=== PATIENT | female | born 1945 | race Caucasian/White ===

== ENCOUNTER 2016-11-19 19:31 | Inpatient (IN) | payer MEDICAID ==
[~2016-11-19] VITALS: Ht 160 cm; Wt 57.2 kg
[2016-11-19] MEDS ORDERED: morphine 2 MG INJ IV STA (20:51)
[2016-11-19] MEDS ORDERED: SOD CHLORIDE 0.9% 1,000 ML IV STA (20:51)
[2016-11-19] MEDS ORDERED: ONDANSETRON 4 MG INJ IV STA (20:51)
[2016-11-19] MEDS ORDERED: METO25TA7 PO (21:26)
--- NOTE | 2016-11-19 21:26 | ERA ---
ER Documentation Chief Complaint Date/Time DATE: 11/19/16 TIME: 21:24 Chief Complaint abd pain x 1 week, black/watery stool HPI Patient is a 71-year-old female who reports abdominal pain with diarrhea. Abdominal pain started a week ago. The diarrhea has been only 4 episodes. Abdominal pain is predominantly in the epigastric and left upper quadrant region and radiates to the left lower back region. She denies any fever, nausea , or vomiting. She has had a loss of appetite. She has recently traveled to the [facility]. She has not been on any antibiotics. One stool was bloody however the rest of them have not been bloody. She has not experienced the symptoms before. Nothing seems to make this better or worse. She denies any dysuria or hematuria. The remainder review systems are negative. ROS All systems reviewed and are negative except as per history of present illness. Medications Home Meds Reported Medications [Nephro-Vaibhav] No Conflict Check, 1 TAB PO DAILY 11/19/16 Furosemide* (Furosemide*) 20 Mg Tablet, 20 MG PO Q48H, #30 TAB 11/19/16 [place]-3/Dha/Epa/Fish Oil (Fish Oil 500 mg Softgel) 1 Each Capsule, 1 EACH PO DAILY, CAP 11/19/16 Aspirin* (Aspirin* EC) 81 Mg Tablet.dr, 81 MG PO DAILY, TAB 11/19/16 Metoprolol Succinate* (Toprol XL*) 25 Mg Tab.sr.24h, 25 MG PO DAILY, #30 TAB 11/19/16 Discontinued Reported Medications Vitamin B Complex/Vit C (Total B with C) 1 Each Tablet, 1 EACH PO DAILY, TAB 11/19/16 Allergies Allergies: Coded Allergies: No Known Drug Allergies (Verified Allergy, Unknown, 11/19/16) PMhx/Soc History of Surgery: Yes (partial bowel obstruction sx 1993,heart cath) Anesthesia Reaction: No Hx Neurological Disorder: No Hx Respiratory Disorders: No Hx Cardiac Disorders: Yes (HTN,mitral regurg,high cholesterol) Hx Psychiatric Problems: No Hx Miscellaneous Medical Probl: Yes (gout,kidney dz stage 4 no dialysis) Hx Alcohol Use: No Hx Substance Use: No Hx Tobacco Use: No Smoking Status: Never smoker Physical Exam Vitals Vital Signs Date Time Temp Pulse Resp B/P Pulse Ox O2 Delivery O2 Flow Rate FiO2 11/19/16 19:41 98.1 84 20 158/67 100 Physical Exam Const: [] Well-developed thin female lying on the bed in no acute distress Head: Atraumatic normocephalic Eyes: Normal Conjunctiva ENT: Normal External Ears, Nose and Mouth. Neck: Full range of motion..~ No meningismus. Resp: Clear to auscultation bilaterally Cardio: Regular rate and rhythm, no murmurs Abd: Soft, mild tenderness to palpation in epigastric and left upper quadrant region with no masses, rebound, or guarding, non distended. Diminished bowel sounds Skin: No petechiae or rashes Back: No midline or flank tenderness Ext: No cyanosis, or edema Neur: Awake and alert oriented 3 with a GCS of 15 Psych: Normal Mood and Affect Result Diagram: 11/19/16205611/19/162056 Results 24 hrs Laboratory Tests Test 11/19/16 20:57 Alanine Aminotransferase (ALT/SGPT) 24IU/L Albumin 4.1g/dl Albumin/Globulin Ratio 1.10 Alkaline Phosphatase 102IU/L Anion Gap 20 Aspartate Amino Transf (AST/SGOT) 31IU/L Basophils # 0.110^3/ul Basophils % 0.6% Blood Urea Nitrogen 28mg/dl Calcium Level 9.3mg/dl Carbon Dioxide Level 23mmol/L Chloride Level 108mmol/L Creatinine 1.91mg/dl Direct Bilirubin 0.00mg/dl Eosinophils # 0.410^3/ul Eosinophils % 4.5% Globulin 3.70g/dl Glucose Level 132mg/dl Hematocrit 23.4% Hemoglobin 7.3g/dl Indirect Bilirubin 0.0mg/dl Lipase 301U/L Lymphocytes # 1.810^3/ul Lymphocytes % 21.0% Mean Corpuscular Hemoglobin 30.0pg Mean Corpuscular Hemoglobin Concent 31.2g/dl Mean Corpuscular Volume 96.3fl Mean Platelet Volume 10.9fl Monocytes # 0.610^3/ul Monocytes % 7.6% Neutrophils # 5.510^3/ul Neutrophils % 66.1% Nucleated Red Blood Cells # 0.010^3/ul Nucleated Red Blood Cells % 0.0/100WBC Platelet Count 36528^3/UL Potassium Level 5.1mmol/L Red Blood Count 2.4310^6/ul Red Cell Distribution Width 13.1% Sodium Level 146mmol/L Total Bilirubin 0.0mg/dl Total Protein 7.8g/dl White Blood Count 8.410^3/ul Current Medications Medications (Trade) Dose Ordered Sig/Allyson Route PRN Reason Start Time Stop Time Status Last Admin Dose Admin Sodium Chloride (NS) 1,000 ml @ 1,000 mls/hr Q1H STAT IV 11/19/16 20:51 11/19/16 21:50 DC 11/19/16 21:10 Morphine Sulfate (morphine) 2 mg ONCE STAT IV 11/19/16 20:51 11/19/16 20:53 DC 11/19/16 21:10 Ondansetron HCl (Zofran Inj) 4 mg ONCE STAT IV 11/19/16 20:51 11/19/16 20:53 DC 11/19/16 21:10 Procedures/MDM Differential includes but is not limited to nonspecific abdominal pain, gastroenteritis, colitis, bacterial enteritis, dehydration, electrolyte disturbance, pyelonephritis, UTI CT of the abdomen and pelvis does not reveal any acute intra-abdominal process. Patient is hemodynamically stable however she is anemic. She is in the hallway and I have been unable to perform a rectal exam to determine if she is heme positive. I suspect she may be. Regardless she needs to be transfused 2 units of blood. I have consulted the hospitalist to admit her to the hospital. Hopefully at some point she will be placed in a room where I can complete her examination. Departure Diagnosis: Primary Impression: Abdominal pain Qualified Code: R10.12 - Left upper quadrant pain Additional Impressions: Diarrhea Qualified Code: A09 - Diarrhea of presumed infectious origin Anemia Qualified Code: D64.9 - Anemia, unspecified type Renal insufficiency Condition: ANAYELI Sinha Nov 19, 2016 21:26
[2016-11-19] MEDS ORDERED: ASPI-664 PO (21:27)
[2016-11-19] MEDS ORDERED: OMEG-144 PO (21:28)
[2016-11-19 21:29] LABS: ADD SCAN DIFF NO
[2016-11-19] MEDS ORDERED: FURO20TA3 PO (21:30)
[2016-11-19 21:31] LABS: BASOPHIL # 0.1 10^3/ul (0.0-0.1); BASOPHILS % 0.6 % (0.0-2.0); EOSINOPHILS # 0.4 10^3/ul (0.0-0.5); EOSINOPHILS % 4.5 % (0.0-7.0); HEMATOCRIT 23.4 % (37.0-47.0); HEMOGLOBIN 7.3 g/dl (12.0-16.0); LYMPHOCYTES # 1.8 10^3/ul (0.8-2.9); MEAN CORPUSCULAR HGB CONC 31.2 g/dl (32.0-37.0); MEAN CORPUSCULAR VOLUME 96.3 fl (82.0-101.0); MEAN PLATELET VOLUME 10.9 fl (7.4-10.4); MONOCYTE # 0.6 10^3/ul (0.3-0.9); MONOCYTES % 7.6 % (0.0-11.0); NEUTROPHIL # 5.5 10^3/ul (1.6-7.5); NEUTROPHILS % 66.1 % (39.0-77.0); PLATELET COUNT 274 10^3/UL (140-415); RED BLOOD COUNT 2.43 10^6/ul (4.20-5.40); RED CELL DISTRIBUTION WIDTH 13.1 % (11.5-14.5); WHITE BLOOD COUNT 8.4 10^3/ul (4.8-10.8)
[2016-11-19] MEDS ORDERED: VITBC PO (21:34)
[2016-11-19] MEDS ORDERED: NEPHRO-VITE PO (21:36)
[2016-11-19 21:44] LABS: ALBUMIN 4.1 g/dl (3.3-4.9)
[2016-11-19 21:45] LABS: POTASSIUM 5.1 mmol/L (3.5-5.1)
[2016-11-19 21:47] LABS: ALBUMIN/GLOBULIN RATIO 1.1; CREATININE 1.91 mg/dl (0.44-1.00); TOTAL PROTEIN 7.8 g/dl (6.1-8.1)
[2016-11-19 21:48] LABS: CALCIUM 9.3 mg/dl (8.4-10.2)
--- NOTE | 2016-11-19 21:55 | RADRPT ---
PROCEDURE: CT abdomen and pelvis without intravenous contrast. CLINICAL INDICATION: Pain. TECHNIQUE: CT of the abdomen/pelvis was performed utilizing axial images with reconstructions in s agittal and coronal planes. The administered radiation dose is CTDI 7 mGy, DLP 308 mGy-cm. COMPARISON: No pertinent prior examinations were submitted for comparison. FINDINGS: Visualized Chest: There are small, right greater than left pleural effusions with some mild associat ed atelectasis. There is mild cardiomegaly Abdomen: The liver, spleen, pancreas, gallbladder,and adrenal glands are unremarkable. The kidneys are without hydronephrosis. No definite urinary calculi are seen. There is no evidence of bowel obstruction. The appendix is normal. No intra-abdominal free air is seen. There is no evidence of intra-abdominal adenopathy or free fluid. Some scattered atherosclerotic ca lcifications are noted in the iliac artery branches. Pelvis: There is no evidence of pelvic adenopathy. The uterus and ovaries are without enlargement. The uri nary bladder is unremarkable. There is no pelvic free fluid. Osseous structures: Unremarkable. IMPRESSION: No acute findings. Trace bilateral pleural effusions. RPTAT: HIKT .Davey La MD, MD Date Time Electronically viewed and signed by .Davey La MD, on 11/19/2016 21:55 .T/
[2016-11-19 23:00] LABS: ADD UMIC YES; URINE BILIRUBIN (Dip) NEGATIVE (NEGATIVE); URINE BLOOD (Dip) NEGATIVE (NEGATIVE); URINE COLOR LT. YELLOW (YELLOW); URINE GLUCOSE (Dip) NEGATIVE (NEGATIVE); URINE KETONES (Dip) NEGATIVE (NEGATIVE); URINE LEUKOCYTE ESTERASE (Dip) 3+ (NEGATIVE); URINE NITRITE (Dip) NEGATIVE (NEGATIVE); URINE TOTAL PROTEIN (Dip) NEGATIVE (NEGATIVE); URINE UROBILINOGEN (Dip) 0.2 E.U./dL (0.1-1.0)
[2016-11-19] MEDS ORDERED: ONDANSETRON 4 MG INJ IV PRN ×2 (23:00→23:30)
[2016-11-19] MEDS ORDERED: ACETAMINOPHEN 325 MG TAB PO PRN (23:00)
--- NOTE | 2016-11-19 23:23 | HP ---
Date/Time of Note Date/Time of Note DATE: 11/19/16 TIME: 23:15 Assessment/Plan VTE Prophylaxis VTE Prophylaxis Intervention: contraindicated, SCD's VTE Contraindication Reason: bleeding Assessment/Plan Assessment/Plan 71 yo female with a past medical history of CHF diastolic dysfunction, MV stenosis, cardiomyopathy, gout, arthritis, CKD stage II/III, who presents with acute abdominal pain and bright red blood per rectum. 1. Abd pain with GI bleed - will admit the patient to med/surg, consult GI, NPO , IVF, protonix gtt, h/h q6h, continue with transfusion, check stool studies, fecal leukocytes, CMV, ova and parasites 2. Anemia - acute blood loss - transfuse 2 units prbcs, monitor H/H 3. Acute on chronic renal failure - 2/2 ATN from blood loss, renally adjust medications, avoid nephrotoxins 4. MV stenosis/Cardiomyopathy/CHF diastolic dysfunction - obtain 2D echo, consult cardio for clearance 5. Gout - hold medications for bleeding 6. Arthritis - hold NSAIDs 7. GI ppx - protonix gtt 8. DVT ppx - scds, hold anticoagulants for acute bleed. answered all of her questions. as per clinical course. this history and physical took greater then 45 minutes to complete HPI/ROS Admit Date/Time Admit Date/Time 11/19/2016, 11:16 pm Hx of Present Illness 71 yo female with a past medical history of CHF diastolic dysfunction, MV stenosis, cardiomyopathy, gout, arthritis, CKD stage II/III, who presents with acute abdominal pain and bright red blood per rectum. The patient had came from the [facility] last week from her trip. For one week, she has had abdominal pain worsening in nature, diffuse tenderness, 8/10 in intensity, gnawing type, associated with 4 episodes of diarrhea, now bloody type. She feels weak and fatigued. Otherwise she denies any chest pain, shortness of breath, loss of consciousness, dizziness, headaches, fevers/chills, nausea/vomiting, or other constitutional symptoms. ED course: 2 units PRBCS, IVF, pain medications PMH/Family/Social Past Medical History MV stenosis, cardiomyopathy, gout, arthritis, CKD stage II/III Medical History: congestive heart failure, coronary artery disease Past Surgical History partial small bowel obstruction with repair Family History Significant Family History: cancer, hypertension, vascular disease Social History Alcohol Use: none Smoking Status: Never smoker Drug Use: none Exam/Review of Systems Vital Signs Vitals Vital Signs Date Time Temp Pulse Resp B/P Pulse Ox O2 Delivery O2 Flow Rate FiO2 11/19/16 23:03 98.0 77 20 146/78 100 Exam Exam Gen Lorie: mild to moderate distress 2/2 to abdominal pain, AAOx4 HEENT: NC/AT, PERRLA, EOMI, no pharyngeal erythema, no tonsillar exudates, no lymphadenopathy, no JVD, no carotid bruits NECK: supple, no thyromegaly THORAX: symmetrical, no obvious deformities CV: S1S2, RRR, III/ systolic murmur best heard over mitral area Lungs: CTAB no W/C/R/R Abd: soft, NT/ND, +BS, no rebound, no guarding, neg HSM EXT: no edema, no ecchymosis, no clubbing, FROM Neuro: CN II-XII grossly intact, no focal deficits Psych: fair mood and affect Skin: C/D/I Labs Result Diagram: 11/19/16205611/19/16[address] abd/pelvis IMPRESSION: No acute findings. Trace bilateral pleural effusions. MAURILIO RUSS MD Nov 19, 2016 23:23
[2016-11-19] MEDS ORDERED: NACL 0.9% 3 ML SYG IV SCH (23:30)
[2016-11-19] MEDS ORDERED: morphine 2 MG INJ IV PRN (23:30)
[2016-11-19] MEDS ORDERED: ACETAMINOPHEN 650 MG SUPP PR PRN (23:30)
[2016-11-19 23:33] LABS: BACTERIA,URINE OCCASIONAL; SQUAMOUS EPITHELIAL CELL,UR FEW; URINE RBCS 0-2 /HPF (0)
--- NOTE | 2016-11-19 23:52 | RADRPT ---
PROCEDURE: CHEST - 1 VIEW CLINICAL INDICATION: 71-year-old female with cough. TECHNIQUE: A single frontal AP semi-erect view of the chest was performed portably. The images we re reviewed on a PACS workstation. COMPARISON: CT abdomen/pelvis November 19, 2016. FINDINGS: The cardiomediastinal silhouette is mildly enlarged. The thoracic aortic arch is calcified. There are diffuse increased interstitial lung markings and septal lines. There are small bilateral pleura l effusions. There is no evidence for focal consolidation. There is no evidence for pneumothorax. Th e osseous structures are intact. IMPRESSION: 1. Cardiomegaly. 2. Calcified thoracic aortic arch. 3. Diffuse increased interstitial lung markings and septal lines. This may represent interstitial lung disease superimposed on pulmonary vascular congestion. Clinical correlation is necessary. Prio r chest radiographs are not available for comparison. 4. Small bilateral pleural effusions. .Kelvin Corral MD, MD Date Time Electronically viewed and signed by .Kelvin Corral MD, on 11/19/2016 23:52 .M/
[2016-11-20] VITALS (9 sets, daily range): BP systolic 126–182; BP diastolic 64–79; PULSE 72–88; RESP 16–20; TEMP 98.2; Ht 160 cm; Wt 57.2 kg
[2016-11-20] MEDS ORDERED: FUROSEMIDE 20 MG INJ IV ONE (01:30)
[2016-11-20] MEDS: PANTOPRAZOLE IV 80 MG in SOD CHLORIDE 0.9% 100 ML IV SCH ×3 (01:57→12:06)
[2016-11-20] MEDS: SOD CHLORIDE 0.9% 1,000 ML IV SCH ×2 (09:08→18:29)
[2016-11-20 10:00] LABS: ADD SCAN DIFF NO
[2016-11-20 10:07] LABS: BASOPHILS % 0.5 % (0.0-2.0); EOSINOPHILS # 0.3 10^3/ul (0.0-0.5); EOSINOPHILS % 3.6 % (0.0-7.0); HEMATOCRIT 29.4 % (37.0-47.0); HEMOGLOBIN 9.6 g/dl (12.0-16.0); LYMPHOCYTES # 1.5 10^3/ul (0.8-2.9); LYMPHOCYTES % 17.3 % (15.0-51.0); MEAN CORPUSCULAR HEMOGLOBIN 30.1 pg (29.0-33.0); MEAN CORPUSCULAR HGB CONC 32.7 g/dl (32.0-37.0); MEAN CORPUSCULAR VOLUME 92.2 fl (82.0-101.0); MEAN PLATELET VOLUME 10.4 fl (7.4-10.4); MONOCYTE # 0.7 10^3/ul (0.3-0.9); MONOCYTES % 8.5 % (0.0-11.0); NEUTROPHIL # 5.9 10^3/ul (1.6-7.5); NEUTROPHILS % 69.9 % (39.0-77.0); PLATELET COUNT 241 10^3/UL (140-415); RED BLOOD COUNT 3.19 10^6/ul (4.20-5.40); RED CELL DISTRIBUTION WIDTH 13.8 % (11.5-14.5); WHITE BLOOD COUNT 8.5 10^3/ul (4.8-10.8)
[2016-11-20 10:14] LABS: POTASSIUM 4.5 mmol/L (3.5-5.1)
[2016-11-20 10:16] LABS: CHOL/HDL RATIO 3.5 RATIO; CREATININE 1.73 mg/dl (0.44-1.00); MAGNESIUM 2.2 mg/dl (1.7-2.5)
[2016-11-20 10:17] LABS: CALCIUM 9.2 mg/dl (8.4-10.2)
[2016-11-20 10:20] LABS: CK-MB 0.88 ng/ml (0.0-2.4)
[2016-11-20 10:25] LABS: TROPONIN-I 0.15 ng/ml (0.00-0.12)
--- NOTE | 2016-11-20 11:16 | CONS ---
Date/Time of Note Date/Time of Note DATE: 11/20/16 TIME: 11:02 Assessment/Plan Assessment/Plan Additional Assessment/Plan Assessment: * GI bleeding/hematochezia * Rule out colonic i.e. inflammatory, ischemic, neoplastic versus hemorrhoidal * Abdominal pain/diarrhea * Rule out inflammatory, ischemic * Anemia related to a problem * History of critical mitral valve stenosis. Patient scheduled for surgery but refused * History of cardiomyopathy/CHF diastolic dysfunction * Acute on chronic renal failure * History of gouty arthritis Plan: * Monitor H&H and transfuse to a safe level as needed * Stool studies as ordered * Cardiac workup and awaiting cardiac consultation for clearance. * Once cardiology clearance is secured we will consider colonoscopy * Colonoscopy was explained to the patient and her family including risks benefits and alternatives. They are agreeable to proceed once cleared by cardiology. Consultation Date/Type/Reason Admit Date/Time 11/19/2016, 11:16 pm Hx of Present Illness Patient is a 69-year-old Syrian female who presented to the emergency room with a 1 week history of crampy abdominal pain associated initially with diarrhea which was followed by bright red blood per rectum moderate amounts. The patient had apparently recently returned from a trip to [facility]. She denied fever, chills or diaphoresis. No other relatives experience diarrheal illness. The patient has a significant cardiac history with critical mitral valve stenosis, cardiomyopathy, diastolic dysfunction. She also has chronic kidney disease stage II/III. At the present time the patient is comfortable, she states her pain is improved , she has had no bowel movement since hospitalized. She is undergoing cardiac workup and awaiting cardiac consultation for clearance. Once this is secured we will consider colonoscopy to address the nature of the patient's diarrhea, abdominal pain and hematochezia. Of note the patient has never had colorectal cancer screening. Colonoscopy was explained to the patient and her family including risks benefits and alternatives. They are agreeable to proceed once cleared by cardiology. Past Medical History * Critical MV stenosis * Cardiomyopathy * Diastolic dysfunction * Gouty arthritis * CKD stage II/III Medical History: congestive heart failure, coronary artery disease Past Surgical History * Small bowel resection for SBO Past Surgical Hx: bowel resection Family History Significant Family History: no pertinent family hx Social History Alcohol Use: none Smoking Status: Never smoker Drug Use: none Exam/Review of Systems Vital Signs Vitals Vital Signs Date Time Temp Pulse Resp B/P Pulse Ox O2 Delivery O2 Flow Rate FiO2 11/20/16 08:16 97.9 65 16 126/66 97 11/20/16 01:06 Room Air Intake and Output 11/19/16 11/19/16 11/20/16 15:00 23:00 07:00 Intake Total 350 ml Output Total 1200 ml Balance -850 ml Exam Constitutional: alert, oriented, well developed Psych: nl mood/affect, no complaints Head: atraumatic, normocephalic Eyes: EOMI, PERRL, nl conjunctiva, nl lids, nl sclera ENMT: nl external ears & nose, nl lips & teeth, nl nasal mucosa & septum Neck: non-tender, supple Respiratory: clear to auscultation, normal air movement Cardiovascular: murmurs/extra sounds (Systolic murmur), nl pulses, regular rate and rhythm, No gallop Gastrointestinal: bowel sounds, nl liver, spleen, non-tender, soft, No ascites, No distended, No hepatomegaly, No mass, No rebound or guarding, No splenomegaly, No tender Musculoskeletal: nl extremities to inspection, nl gait and stance Extremities: normal pulses Neurological: 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, nl mental status, nl speech, nl strength Skin: nl turgor, No rash or lesions Lymph: nl lymph nodes Results Result Diagram: 11/20/1693811/20/16 0939 Results 24 hrs Laboratory Tests Test 11/19/16 20:57 11/19/16 21:21 11/20/16 09:39 Alanine Aminotransferase (ALT/SGPT) 24 Albumin 4.1 Albumin/Globulin Ratio 1.10 Alkaline Phosphatase 102 Anion Gap 20 H 19 H Aspartate Amino Transf (AST/SGOT) 31 Basophils # 0.1 0.0 Basophils % 0.6 0.5 Blood Urea Nitrogen 28 H 23 H Calcium Level 9.3 9.2 Carbon Dioxide Level 23 24 Chloride Level 108 109 Creatinine 1.91 H 1.73 H Direct Bilirubin 0.00 Eosinophils # 0.4 0.3 Eosinophils % 4.5 3.6 Globulin 3.70 H Glucose Level 132 89 # Hematocrit 23.4 L 29.4 #L Hemoglobin 7.3 L 9.6 #L Indirect Bilirubin 0.0 Lipase 301 H Lymphocytes # 1.8 1.5 Lymphocytes % 21.0 17.3 Mean Corpuscular Hemoglobin 30.0 30.1 Mean Corpuscular Hemoglobin Concent 31.2 L 32.7 Mean Corpuscular Volume 96.3 92.2 Mean Platelet Volume 10.9 H 10.4 Monocytes # 0.6 0.7 Monocytes % 7.6 8.5 Neutrophils # 5.5 5.9 Neutrophils % 66.1 69.9 Nucleated Red Blood Cells # 0.0 0.0 Nucleated Red Blood Cells % 0.0 0.0 Platelet Count 274 241 Potassium Level 5.1 4.5 Red Blood Count 2.43 L 3.19 #L Red Cell Distribution Width 13.1 13.8 Sodium Level 146 H 147 H Total Bilirubin 0.0 L Total Protein 7.8 White Blood Count 8.4 8.5 Urine Bacteria OCCASIONAL Urine Bilirubin NEGATIVE Urine Clarity SL HAZY Urine Color LT. YELLOW Urine Glucose NEGATIVE Urine Hemoglobin NEGATIVE Urine Ketones NEGATIVE Urine Leukocyte Esterase 3+ H Urine Microscopic RBC 0-2 Urine Microscopic WBC 2-5 Urine Nitrite NEGATIVE Urine Specific Buckner <=1.005 L Urine Squamous Epithelial Cells FEW Urine Total Protein NEGATIVE Urine Urobilinogen 0.2 E.U./dL Urine pH 6.0 Cholesterol Level 137 Cholesterol/HDL Ratio 3.5 Creatine Kinase 72 Creatine Kinase Index 1.2 Creatinine Kinase MB (Mass) 0.88 HDL Cholesterol 39 Hemoglobin A1c 5.5 LDL Cholesterol, Calculated 69 Magnesium Level 2.2 Thyroid Stimulating Hormone (TSH) Pending Triglycerides Level 145 Troponin I 0.150 *H Medications Medications Current Medications Sodium Chloride (NS) 1,000 ml @ 50 mls/hr Q20H IV Last administered on 09:08; Admin Dose 50 MLS/HR; Start 11/19/16 at 23:11 Ondansetron HCl (Zofran Inj) 4 mg Q6H PRN IV NAUSEA AND/OR VOMITING; Start at 23:30 Acetaminophen (Tylenol Supp) 650 mg Q6H PRN [place] PAIN LEVEL 1-3 OR FEVER; Start 11/19/16 at 23:30 Morphine Sulfate 2 mg 2 mg Q4H PRN IV SEVERE PAIN LEVEL 7-10; Start 11/19/16 at 23:30 Pantoprazole/ Sodium Chloride (Protonix Iv/NS) 100 ml @ 10 mls/hr Q10H IV Last administered on 11/20/16 01:57; Admin Dose 10 MLS/HR; Start 11/19/16 at 23 :30 Influenza Virus Vaccine (Fluzone) 0.5 ml ONCE ONCE IM* ; Start 11/22/16 at 09:00 ; Stop 11/22/16 at 09:01 CARROL FERNANDES MD Nov 20, 2016 11:12
[2016-11-20] MEDS ORDERED: hydrALAzine 20 MG INJ IV PRN (11:30)
--- NOTE | 2016-11-20 12:08 | PN ---
DATE: 11/20/2016 SUBJECTIVE DATA: Complains of abdominal pain. Denies any chest pain. Complains of some difficulty in urination. OBJECTIVE DATA: VITAL SIGNS: Temperature 97.9, pulse rate 64, respiratory rate 16, blood pressure 126/66, oxygen saturation 97% on room air. GENERAL: This is a thin female patient lying in bed in no apparent distress. HEENT: Head normocephalic and atraumatic. Eyes: Anicteric sclerae. Conjunctivae clear. ENT: Nasal septum is midline. Oral mucosa is dry. NECK: Supple. No JVD noticed. RESPIRATORY: Bilaterally clear to auscultation. Diminished breath sounds at the bases. No use of accessory muscles of respiration. CARDIAC: Regular rate and rhythm with occasional skipped beats. Grade I/ diastolic murmur. ABDOMEN: Soft. Minimal suprapubic tenderness. Bowel sounds hypoactive in all 4 quadrants. GENITOURINARY: Deferred. EXTREMITIES: No cyanosis, no clubbing, no edema. Peripheral pulses are palpable. NEUROLOGIC: The patient is awake, alert and oriented. Cranial nerves are grossly intact. LABORATORY AND DIAGNOSTIC DATA: WBC 8.5, hemoglobin 9.6, hematocrit 29.4, platelet count 241. Sodium 147, potassium 4.5, chloride 109, carbon dioxide 25 , anion gap 19, BUN 23, creatinine 1.73, glucose 89, calcium 9.2. Magnesium 2.2. ASSESSMENT AND PLAN: 1. Abdominal pain with underlying gastrointestinal bleeding. Continue proton pump inhibitors. The patient is status post 2 units of PRBC transfusion. Gastroenterology consult has already been called. 2. Normocytic normochromic anemia secondary to acute blood loss. Status post 2 units of PRBC transfusion. Monitor hemoglobin and hematocrit closely. Continue proton pump inhibitors. 3. Acute on chronic renal failure. Probably secondary to hemodynamics versus acute tubular necrosis. Renally dose medications. Avoid nephrotoxic medications. 4. Mitral valve stenosis with underlying cardiomyopathy by history. A cardiology consult will be obtained. We will obtain a 2D echocardiogram. 5. Elevated troponins. Etiology unclear. We will trend troponins. Cardiology consult pending. Unable to use any aspirin because of underlying gastrointestinal bleeding. 6. Gout. Medications on hold. 7. Arthritis. Hold NSAIDs because of underlying gastrointestinal bleeding. 8. Fluid, electrolytes and nutrition. Continue n.p.o. Continue IV fluids. 9. Deep venous thrombosis prophylaxis. Bilateral sequential compression devices. 10. Gastrointestinal prophylaxis. Proton pump inhibitors. PLAN: Continue inpatient monitoring. Continue Protonix drip. Continue n.p.o. Await cardiology evaluation. Case discussed with Dr. Wheeler. JD WHEELER MD, AM/JARED Conf#: [id number] DID#: [id number]
[2016-11-20 12:19] LABS: THYROID STIMULATING HORMONE 7.62 MIU/L (0.465-4.680)
--- NOTE | 2016-11-20 15:43 | CONS ---
DATE OF ADMISSION: 11/20/2016 DATE OF CONSULTATION: 11/20/2016 CARDIOLOGY CONSULTATION REFERRING PHYSICIAN: Osmani Whyte MD REASON FOR EVALUATION: Preoperative assessment. Mitral valve stenosis, CHF, arrhythmia. HISTORY OF PRESENT ILLNESS: Ms. Joy is a 71-year-old woman with history of heart failure with un known to me ejection fraction, history of mitral stenosis, apparently severe as patient was offered to have surgery last year that she , cardiomyopathy, renal disease, history of anemia, who com es to the hospital now for evaluation of acute anemia with likely lower GI bleeding. I have been as ked to see patient in consultation for reevaluation for possible EGD/colonoscopy. The patient has a history of mitral stenosis, she had a mitral stenosis murmur on her examination. There is no EKG a vailable for my review and I will order one shortly. The patient also will have a 2D echo. If the patient truly has significant mitral stenosis, this is a very high risk lesion for any surgical inte rvention including EGD/colonoscopy. I will hold off on clearing the patient for the procedure, I marrero ve not any results of studies. For now, I would recommend the patient be transferred to telemetry g [facility] this conjunction of symptoms. PAST MEDICAL HISTORY: Hypertension, dyslipidemia. Mitral stenosis, possibly severe. This patient was offered surgery 1 year ago. Cardiomyopathy, heart failure with unknown to me ejection fraction, gout, gastritis, renal disease. ALLERGIES: NO KNOWN DRUG ALLERGIES. SOCIAL HISTORY: The patient does not smoke, does not drink, does not use any drugs. FAMILY HISTORY: Negative for sudden cardiac or premature coronary artery disease. MEDICATIONS: 1. Metoprolol 25 mg p.o. once a day. 2. Hydralazine 10 mg as needed. 3. Ondansetron. 4. Morphine sulfate. REVIEW OF SYSTEMS: CONSTITUTIONAL: No fevers, no chills, no shortness of breath. HEENT: No changes in vision or hearing. CARDIAC: No chest pain reported now. RESPIRATORY: Shortness of breath, chronic. GASTROINTESTINAL: No nausea, vomiting, now with abdominal discomfort and bowel movements with possi ble blood. GENITOURINARY: No dysuria, hematuria. NEUROLOGIC: No focal neurologic deficits. HEMATOLOGIC: No easy bruising. PSYCHIATRIC: No known history of psychiatric disease. PHYSICAL EXAMINATION: VITAL SIGNS: Temperature 96.9, heart rate 65, blood pressure 126/67. GENERAL: She is a thin woman in no acute distress, alert and oriented x3, aware of her condition. HEAD: Normocephalic, atraumatic. Eyes anicteric. NECK: Supple. JVD 6-7 cm. There is no lymphadenopathy. HEART: Irregularly irregular. Soft I/ diastolic murmur at the apex. She has irregular heartbeat s. PMI is displaced leftward. LUNGS: Coarse at the bases. ABDOMEN: Distended, bowel sounds are present. There is no hepatosplenomegaly. GENITOURINARY: Exam is intact. EXTREMITIES: Show no clubbing, cyanosis, edema. SKIN: Does not show any bruising or rash. NEUROLOGICAL: She is able to move her extremities. IMAGING DATA: Chest x-ray shows increased interstitial markings consistent with CHF and small pleur al effusions. LABORATORY DATA: White blood cell count 8.5, hemoglobin 9.6, platelets 241. Her troponins were nikos vated at 0.15. Sodium 147, potassium 4.5, BUN is 23, creatinine is 1.37. ASSESSMENT AND PLAN: 1. Preoperative assessment. The patient is here for preoperative assessment for possible EGD and c olonoscopy. The patient has a murmur consistent with significant mitral stenosis, this a very hemod ynamically unstable lesion. I would recommend for patient has further evaluation with 12-lead EKG, as well as a 2D echo now. We will check another set of troponins, I would recommend for the patient to be transferred to telemetry and will follow expectantly in the preoperative risk stratification. The patient might be high risk for any intervention pending evaluation of the studies. 2. Elevated troponins. The patient has elevated troponin and CK-MB is normal. Troponin is slightl y elevated. This is more consistent with chronic troponin elevation rather than acute coronary synd lupe. Will continue to monitor for now, will not initiate patient on aspirin because of the bleedin g of unclear etiology and rate control with beta lyssa. 3. Acute renal failure. Creatinine is elevated, but better from admission. Continue to monitor. 4. Hypertension. Blood pressure modestly well controlled. We will allow for now. 5. Arrhythmia. The patient had irregular beat, will transfer to her telemetry 12-lead, EKG to [facility]. I would like to thank Dr. Whyte for referring this patient for my evaluation. Dictated By: GE MIRELES/JARED Conf#: [id number] DID#: [id number]
[2016-11-20 16:36] LABS: CK-MB 0.76 ng/ml (0.0-2.4)
[2016-11-20 16:39] LABS: TROPONIN-I 0.09 ng/ml (0.00-0.12)
[2016-11-20 18:40] LABS: HEMATOCRIT 33.4 % (37.0-47.0); HEMOGLOBIN 10.9 g/dl (12.0-16.0)
[2016-11-20 21:43] LABS: CK-MB 0.92 ng/ml (0.0-2.4)
[2016-11-20 22:04] LABS: TROPONIN-I 0.141 ng/ml (0.00-0.12)
[2016-11-20 23:44] LABS: HEMATOCRIT 32.7 % (37.0-47.0); HEMOGLOBIN 10.6 g/dl (12.0-16.0)
[2016-11-21] VITALS (12 sets, daily range): BP systolic 124–144; BP diastolic 59–97; PULSE 74–95; RESP 18–20
[2016-11-21 03:34] LABS: ADD SCAN DIFF NO
[2016-11-21 03:38] LABS: BASOPHILS % 0.4 % (0.0-2.0); EOSINOPHILS # 0.1 10^3/ul (0.0-0.5); HEMATOCRIT 30.4 % (37.0-47.0); HEMOGLOBIN 9.9 g/dl (12.0-16.0); LYMPHOCYTES # 1.5 10^3/ul (0.8-2.9); LYMPHOCYTES % 13.6 % (15.0-51.0); MEAN CORPUSCULAR HEMOGLOBIN 29.8 pg (29.0-33.0); MEAN CORPUSCULAR HGB CONC 32.6 g/dl (32.0-37.0); MEAN CORPUSCULAR VOLUME 91.6 fl (82.0-101.0); MEAN PLATELET VOLUME 10.4 fl (7.4-10.4); MONOCYTE # 0.9 10^3/ul (0.3-0.9); MONOCYTES % 8.1 % (0.0-11.0); NEUTROPHIL # 8.4 10^3/ul (1.6-7.5); NEUTROPHILS % 76.5 % (39.0-77.0); PLATELET COUNT 263 10^3/UL (140-415); RED BLOOD COUNT 3.32 10^6/ul (4.20-5.40); WHITE BLOOD COUNT 10.9 10^3/ul (4.8-10.8)
[2016-11-21 04:04] LABS: POTASSIUM 4.3 mmol/L (3.5-5.1)
[2016-11-21 04:06] LABS: CREATININE 1.7 mg/dl (0.44-1.00)
[2016-11-21 04:07] LABS: CALCIUM 9.1 mg/dl (8.4-10.2)
[2016-11-21 04:08] LABS: MAGNESIUM 2.1 mg/dl (1.7-2.5)
[2016-11-21 04:16] LABS: CK-MB 1.11 ng/ml (0.0-2.4)
[2016-11-21 04:34] LABS: TROPONIN-I 0.199 ng/ml (0.00-0.12)
[2016-11-21] MEDS: SOD CHLORIDE 0.9% 1,000 ML IV SCH (05:59)
[2016-11-21] MEDS: PANTOPRAZOLE IV 80 MG in SOD CHLORIDE 0.9% 100 ML IV SCH ×2 (07:27→15:26)
[2016-11-21] MEDS: METOPROLOL (XL) 25 MG TAB PO SCH (08:35)
--- NOTE | 2016-11-21 14:56 | PN ---
Date/Time of Note Date/Time of Note DATE: 11/21/16 TIME: 14:54 Assessment/Plan VTE Prophylaxis VTE Prophylaxis Intervention: contraindicated, SCD's Lines/Catheters IV Catheter Type (from Nrs): Peripheral IV Assessment/Plan Assessment/Plan Assessment: * GI bleeding/hematochezia * Rule out colonic i.e. inflammatory, ischemic, neoplastic versus hemorrhoidal * Abdominal pain/diarrhea * Rule out inflammatory, ischemic * Anemia related to a problem * History of critical mitral valve stenosis. Patient scheduled for surgery but refused * History of cardiomyopathy/CHF diastolic dysfunction * Acute on chronic renal failure * History of gouty arthritis Plan: * Monitor H&H and transfuse to a safe level as needed * Stool studies as ordered * Cardiac workup and awaiting cardiac consultation for clearance. * Once cardiology clearance is secured we will consider colonoscopy * Colonoscopy was explained to the patient and her family including risks benefits and alternatives. They are agreeable to proceed once cleared by cardiology. Subjective 24 Hr Interval Summary Free Text/Dictation Course reviewed with nursing staff Cardiology input appreciated Likely the patient has had no further episodes of bleeding We will continue to monitor We will proceed with colonoscopy if and when cleared by cardiology Exam/Review of Systems Vital Signs Vitals Vital Signs Date Time Temp Pulse Resp B/P Pulse Ox O2 Delivery O2 Flow Rate FiO2 11/21/16 12:19 74 11/21/16 12:08 98.0 19 124/70 96 11/21/16 00:00 Room Air 11/20/16 16:45 2.0 Intake and Output 11/20/16 11/20/16 11/21/16 15:00 23:00 07:00 Intake Total 400 ml 460 ml Output Total 1350 ml Balance 400 ml -890 ml Exam Constitutional: alert, oriented, well developed Psych: nl mood/affect, no complaints Head: atraumatic, normocephalic Eyes: EOMI, PERRL, nl conjunctiva, nl lids, nl sclera ENMT: nl external ears & nose, nl lips & teeth, nl nasal mucosa & septum Neck: non-tender, supple Respiratory: clear to auscultation, normal air movement Cardiovascular: murmurs/extra sounds (Systolic murmur), nl pulses, regular rate and rhythm, No gallop Gastrointestinal: bowel sounds, nl liver, spleen, non-tender, soft, No ascites, No distended, No hepatomegaly, No mass, No rebound or guarding, No splenomegaly, No tender Musculoskeletal: nl extremities to inspection, nl gait and stance Extremities: normal pulses Neurological: [employer] II-XII intact, nl mental status, nl speech, nl strength Skin: nl turgor, No rash or lesions Lymph: nl lymph nodes Results Result Diagram: 11/21/16 03111/21/16 0310 Results 24 hrs Laboratory Tests Test 11/20/16 15:45 11/20/16 17:58 11/20/16 21:00 11/20/16 23:35 Creatine Kinase 71 81 Creatine Kinase Index 1.1 1.1 Creatinine Kinase MB (Mass) 0.76 0.92 Troponin I 0.090 0.141 *H Hematocrit 33.4 L 32.7 L Hemoglobin 10.9 L 10.6 L Test 11/21/16 03:10 Amylase Level 115 Anion Gap 19 H Basophils # 0.0 Basophils % 0.4 Blood Urea Nitrogen 18 Calcium Level 9.1 Carbon Dioxide Level 22 Chloride Level 109 Creatine Kinase 94 Creatine Kinase Index 1.2 Creatinine 1.70 H Creatinine Kinase MB (Mass) 1.11 Eosinophils # 0.1 Eosinophils % 1.0 Glucose Level 94 Hematocrit 30.4 L Hemoglobin 9.9 L Lipase 146 Lymphocytes # 1.5 Lymphocytes % 13.6 L Magnesium Level 2.1 Mean Corpuscular Hemoglobin 29.8 Mean Corpuscular Hemoglobin Concent 32.6 Mean Corpuscular Volume 91.6 Mean Platelet Volume 10.4 Monocytes # 0.9 Monocytes % 8.1 Neutrophils # 8.4 H Neutrophils % 76.5 Nucleated Red Blood Cells # 0.0 Nucleated Red Blood Cells % 0.0 Phosphorus Level 4.0 Platelet Count 263 Potassium Level 4.3 Red Blood Count 3.32 L Red Cell Distribution Width 14.0 Sodium Level 146 H Troponin I 0.199 *H Uric Acid 10.7 H White Blood Count 10.9 #H Medications Medications Current Medications Sodium Chloride (NS) 1,000 ml @ 50 mls/hr Q20H IV Last administered on t 05:59; Admin Dose 50 MLS/HR; Start 11/19/16 at 23:11 Ondansetron HCl (Zofran Inj) 4 mg Q6H PRN IV NAUSEA AND/OR VOMITING; Start at 23:30 Acetaminophen (Tylenol Supp) 650 mg Q6H PRN [place] PAIN LEVEL 1-3 OR FEVER; Start 11/19/16 at 23:30 Morphine Sulfate 2 mg 2 mg Q4H PRN IV SEVERE PAIN LEVEL 7-10; Start 11/19/16 at 23:30 Pantoprazole/ Sodium Chloride (Protonix Iv/NS) 100 ml @ 10 mls/hr Q10H IV Last administered on 11/21/16 07:27; Admin Dose 10 MLS/HR; Start 11/19/16 at 23 :30 Influenza Virus Vaccine (Fluzone) 0.5 ml ONCE ONCE IM* ; Start 11/22/16 at 09:00 ; Stop 11/22/16 at 09:01 Hydralazine HCl (Apresoline) 10 mg Q6H PRN IV SBP> 160 Last administered on 14:22; Admin Dose 10 MG; Start 11/20/16 at 11:30 Metoprolol Succinate (Toprol Xl) 25 mg DAILY PO Last administered on 11/21/16 08:35; Admin Dose 25 MG; Start 11/21/16 at 09:00 CARROL FERNANDES MD Nov 21, 2016 14:56
--- NOTE | 2016-11-21 15:17 | PN ---
Date/Time of Note Date/Time of Note DATE: 11/21/16 TIME: 15:16 Assessment/Plan VTE Prophylaxis VTE Prophylaxis Intervention: SCD's Lines/Catheters IV [facility]): Peripheral IV Assessment/Plan Chief Complaint/Hosp Course 1. Abdominal pain with underlying gastrointestinal bleeding. Continue proton pump inhibitors. The patient is status post 2 units of PRBC transfusion. Gastroenterology consult has already been called. Awaiting colonoscopy once the cardiology clearance was obtained. 2. Normocytic normochromic anemia secondary to acute blood loss. Status post 2 units of PRBC transfusion. Monitor hemoglobin and hematocrit closely. Continue proton pump inhibitors. 3. Acute on chronic renal failure. Probably secondary to hemodynamics versus acute tubular necrosis. Renally dose medications. Avoid nephrotoxic medications. 4. Mitral valve stenosis with underlying cardiomyopathy by history. Cardiology following. Pending 2D echocardiogram. 5. Elevated troponins. Etiology unclear. Will trend troponins. Unable to use any aspirin because of underlying gastrointestinal bleeding. 6. Gout. Medications on hold. 7. Arthritis. Hold NSAIDs because of underlying gastrointestinal bleeding. 8. Fluid, electrolytes and nutrition. Continue n.p.o. Continue IV fluids. 9. Deep venous thrombosis prophylaxis. Bilateral sequential compression devices. 10. Gastrointestinal prophylaxis. Proton pump inhibitors. PLAN: Continue inpatient monitoring. Continue Protonix drip. Continue n.p.o. Await gastroenterology intervention once cardiology clearance is obtained. Case discussed with Dr. Nelson. Problems: Subjective 24 Hr Interval Summary Free Text/Dictation Denies any GI bleed. Denies any chest pain. Exam/Review of Systems Vital Signs Vitals Vital Signs Date Time Temp Pulse Resp B/P Pulse Ox O2 Delivery O2 Flow Rate FiO2 11/21/16 12:19 74 11/21/16 12:08 98.0 19 124/70 96 11/21/16 00:00 Room Air 11/20/16 16:45 2.0 Intake and Output 11/20/16 11/20/16 11/21/16 15:00 23:00 07:00 Intake Total 400 ml 460 ml Output Total 1350 ml Balance 400 ml -890 ml Exam GENERAL: This is a thin female patient lying in bed in no apparent distress. HEENT: Head normocephalic and atraumatic. Eyes: Anicteric sclerae. Conjunctivae clear. ENT: Nasal septum is midline. Oral mucosa is dry. NECK: Supple. No JVD noticed. RESPIRATORY: Bilaterally clear to auscultation. Diminished breath sounds at the bases. No use of accessory muscles of respiration. CARDIAC: Regular rate and rhythm with occasional skipped beats. Grade I/ diastolic murmur. ABDOMEN: Soft. Minimal suprapubic tenderness. Bowel sounds hypoactive in all 4 quadrants. GENITOURINARY: Deferred. EXTREMITIES: No cyanosis, no clubbing, no edema. Peripheral pulses are palpable. NEUROLOGIC: The patient is awake, alert and oriented. Cranial nerves are grossly intact. Results Result Diagram: 11/21/1630911/21/16 031 Results 24 hrs Laboratory Tests Test 11/20/16 15:45 11/20/16 17:58 11/20/16 21:00 11/20/16 23:35 Creatine Kinase 71 81 Creatine Kinase Index 1.1 1.1 Creatinine Kinase MB (Mass) 0.76 0.92 Troponin I 0.090 0.141 *H Hematocrit 33.4 L 32.7 L Hemoglobin 10.9 L 10.6 L Test 11/21/16 03:10 Amylase Level 115 Anion Gap 19 H Basophils # 0.0 Basophils % 0.4 Blood Urea Nitrogen 18 Calcium Level 9.1 Carbon Dioxide Level 22 Chloride Level 109 Creatine Kinase 94 Creatine Kinase Index 1.2 Creatinine 1.70 H Creatinine Kinase MB (Mass) 1.11 Eosinophils # 0.1 Eosinophils % 1.0 Glucose Level 94 Hematocrit 30.4 L Hemoglobin 9.9 L Lipase 146 Lymphocytes # 1.5 Lymphocytes % 13.6 L Magnesium Level 2.1 Mean Corpuscular Hemoglobin 29.8 Mean Corpuscular Hemoglobin Concent 32.6 Mean Corpuscular Volume 91.6 Mean Platelet Volume 10.4 Monocytes # 0.9 Monocytes % 8.1 Neutrophils # 8.4 H Neutrophils % 76.5 Nucleated Red Blood Cells # 0.0 Nucleated Red Blood Cells % 0.0 Phosphorus Level 4.0 Platelet Count 263 Potassium Level 4.3 Red Blood Count 3.32 L Red Cell Distribution Width 14.0 Sodium Level 146 H Troponin I 0.199 *H Uric Acid 10.7 H White Blood Count 10.9 #H Medications Medications Current Medications Sodium Chloride (NS) 1,000 ml @ 50 mls/hr Q20H IV Last administered on t 05:59; Admin Dose 50 MLS/HR; Start 11/19/16 at 23:11 Ondansetron HCl (Zofran Inj) 4 mg Q6H PRN IV NAUSEA AND/OR VOMITING; Start at 23:30 Acetaminophen (Tylenol Supp) 650 mg Q6H PRN [place] PAIN LEVEL 1-3 OR FEVER; Start 11/19/16 at 23:30 Morphine Sulfate 2 mg 2 mg Q4H PRN IV SEVERE PAIN LEVEL 7-10; Start 11/19/16 at 23:30 Pantoprazole/ Sodium Chloride (Protonix Iv/NS) 100 ml @ 10 mls/hr Q10H IV Last administered on 11/21/16 07:27; Admin Dose 10 MLS/HR; Start 11/19/16 at 23 :30 Influenza Virus Vaccine (Fluzone) 0.5 ml ONCE ONCE IM* ; Start 11/22/16 at 09:00 ; Stop 11/22/16 at 09:01 Hydralazine HCl (Apresoline) 10 mg Q6H PRN IV SBP> 160 Last administered on 14:22; Admin Dose 10 MG; Start 11/20/16 at 11:30 Metoprolol Succinate (Toprol Xl) 25 mg DAILY PO Last administered on 11/21/16 08:35; Admin Dose 25 MG; Start 11/21/16 at 09:00 JD PARADA NP Nov 21, 2016 15:17
[2016-11-21 15:39] LABS: CK-MB 1.5 ng/ml (0.0-2.4)
[2016-11-21 15:43] LABS: TROPONIN-I 0.07 ng/ml (0.00-0.12)
--- NOTE | 2016-11-21 16:58 | CONS ---
Date/Time of Note Date/Time of Note DATE: 11/21/16 TIME: 16:55 Assessment/Plan Assessment/Plan Additional Assessment/Plan 1. Preoperative assessment - pre-operative assessment, possible EGD and colonoscopy. The patient has a murmur consistent with significant mitral stenosis, this a very hemodynamically unstable lesion. 2D ECHO to be reviewed when available. 2. Elevated troponins. The patient has elevated troponin and CK-MB is normal. Troponin is slightly elevated. This is more consistent with chronic troponin elevation rather than acute coronary syndrome. Will continue to monitor for now , will not initiate patient on aspirin because of the bleeding of unclear etiology and rate control with beta lyssa. NO CP now. 3. Acute renal failure. Creatinine is elevated, but better from admission. Continue to monitor. 4. Hypertension. Blood pressure modestly well controlled. We will allow for now. 5. Arrhythmia. The patient had irregular beat, will transfer to her telemetry 12-lead, EKG to follow. Consultation Date/Type/Reason Admit Date/Time Nov 20, 2016 at 07:25 Initial Consult Date 24 HR Interval Summary Free Text/Dictation No acute change - awaiting 2D ECHO report. ROS: No fever, no chills, no nausea, no vomiting, no diarrhea/constipation No recent weight changes No chest pain, no PND, no orthopnea No dizziness, blurred vision No thirst, no heat or cold intolerance Exam/Review of Systems Vital Signs Vitals Vital Signs Date Time Temp Pulse Resp B/P Pulse Ox O2 Delivery O2 Flow Rate FiO2 11/21/16 16:01 95 11/21/16 15:35 98.1 18 126/59 96 11/21/16 00:00 Room Air 11/20/16 16:45 2.0 Intake and Output 11/20/16 11/20/16 11/21/16 15:00 23:00 07:00 Intake Total 400 ml 460 ml Output Total 1350 ml Balance 400 ml -890 ml Exam General: WN/WD/NAD, AOx 3 HEENT: Unicetric/atraumatic/EOMI (follows commands) NECK: JVD elevated, no thyromegaly Lymph: no lymphadenopathy HEART: regular with no S3, II/ systolic murmur at apex, 2/6 dist m LUNGS: Coarse sounds ABD: soft, NT, ND, +BS : Intact Neuro: non focal SKIN: chronic changes EXT: trace edema Results Result Diagram: 11/21/16 0310 11/21/16 0310 Results 24 hrs Laboratory Tests Test 11/20/16 17:58 11/20/16 21:00 11/20/16 23:35 11/21/16 03:10 Hematocrit 33.4 L 32.7 L 30.4 L Hemoglobin 10.9 L 10.6 L 9.9 L Creatine Kinase 81 94 Creatine Kinase Index 1.1 1.2 Creatinine Kinase MB (Mass) 0.92 1.11 Troponin I 0.141 *H 0.199 *H Amylase Level 115 Anion Gap 19 H Basophils # 0.0 Basophils % 0.4 Blood Urea Nitrogen 18 Calcium Level 9.1 Carbon Dioxide Level 22 Chloride Level 109 Creatinine 1.70 H Eosinophils # 0.1 Eosinophils % 1.0 Glucose Level 94 Lipase 146 Lymphocytes # 1.5 Lymphocytes % 13.6 L Magnesium Level 2.1 Mean Corpuscular Hemoglobin 29.8 Mean Corpuscular Hemoglobin Concent 32.6 Mean Corpuscular Volume 91.6 Mean Platelet Volume 10.4 Monocytes # 0.9 Monocytes % 8.1 Neutrophils # 8.4 H Neutrophils % 76.5 Nucleated Red Blood Cells # 0.0 Nucleated Red Blood Cells % 0.0 Phosphorus Level 4.0 Platelet Count 263 Potassium Level 4.3 Red Blood Count 3.32 L Red Cell Distribution Width 14.0 Sodium Level 146 H Uric Acid 10.7 H White Blood Count 10.9 #H Test 11/21/16 14:50 Creatine Kinase 177 Creatine Kinase Index 0.8 Creatinine Kinase MB (Mass) 1.50 Troponin I 0.070 Medications Medications Current Medications Sodium Chloride (NS) 1,000 ml @ 50 mls/hr Q20H IV Last administered on t 05:59; Admin Dose 50 MLS/HR; Start 11/19/16 at 23:11 Ondansetron HCl (Zofran Inj) 4 mg Q6H PRN IV NAUSEA AND/OR VOMITING; Start at 23:30 Acetaminophen (Tylenol Supp) 650 mg Q6H PRN [place] PAIN LEVEL 1-3 OR FEVER; Start 11/19/16 at 23:30 Morphine Sulfate 2 mg 2 mg Q4H PRN IV SEVERE PAIN LEVEL 7-10; Start 11/19/16 at 23:30 Pantoprazole/ Sodium Chloride (Protonix Iv/NS) 100 ml @ 10 mls/hr Q10H IV Last administered on 11/21/16 15:26; Admin Dose 10 MLS/HR; Start 11/19/16 at 23 :30 Influenza Virus Vaccine (Fluzone) 0.5 ml ONCE ONCE IM* ; Start 11/22/16 at 09:00 ; Stop 11/22/16 at 09:01 Hydralazine HCl (Apresoline) 10 mg Q6H PRN IV SBP> 160 Last administered on 14:22; Admin Dose 10 MG; Start 11/20/16 at 11:30 Metoprolol Succinate (Toprol Xl) 25 mg DAILY PO Last administered on 11/21/16 08:35; Admin Dose 25 MG; Start 11/21/16 at 09:00 GE HERNANDEZ MD Nov 21, 2016 16:58
--- NOTE | 2016-11-21 17:35 | RADRPT ---
Echocardiogram Report Patient Name: LISSETTE CAMARILLO Gender: Female Date: 1945 Study Date: 21-Nov-2016 Customer Operations Representative: [facility] Location: 5540 Ref. Physician: MAURILIO RUSS Quality: Good Procedures: Transthoracic echocardiogram with complete 2D, M-Mode, and doppler examination. Indications: CARDIAC CLEARANCE. 2D/M Mode Doppler Measurement Value Normal Ranges Measurement Value Normal Ranges LVIDd 2D 3.7 3.5 - 5.6 cm LVOT Peak Shawn 1.4 m/sec LVIDs 2D 2.5 2.1 - 4.1 cm LVOT Peak PG 7.3 mmHg LVPWd 2D 1.0 0.6 - 1.1 cm MV E Peak Shawn 1.9 m/sec IVSd 2D 1.0 0.6 - 1.1 cm MV A Peak Shawn 2.0 m/sec AoR Diam 2D 1.8 2.0 - 3.7 cm MV PHT 171.0 msec EDV 2D 56.4 cm3 MV Peak Shawn 3.4 m/sec ESV 2D 14.9 cm3 MV Peak PG 45.7 mmHg LVOT Diam 1.6 cm MV Mean Shawn 2.0 m/sec MV Mean PG 19.5 mmHg MV PHT 171.0 msec MV VTI 115.8 cm MVA PHT 1.3 cm2 TR Peak Shawn 4.0 m/sec TR Peak PG 64.2 mmHg Findings Left Ventricle: Normal left ventricular systolic function. Normal left ventricular cavity size. Normal left ventricular wall thickness. Reduced left ventricular cavity size. Ejection fraction is visually estimated at 65 %. Abnormal Diastolic Function. Right Ventricle: Normal right ventricular size. Hyperdynamic right ventricular systolic function. Left Atrium: There is severe enlargement of left atrium. Right Atrium: Right atrium at upper limits of normal. Mitral Valve: Mitral valve leaflets appear moderately thickened. Mild mitral leaflet calcification. Trace mitral regurgitation. Moderate mitral stenosis. Mitral valve Max Velocity 3.38 m/sec. MaxPG 45.70 mmHg. MeanPG 19.50 mmHg. Mitral Valve Area by PHT1.30 cm2. Aortic Valve: Trileaflet aortic valve. Moderate aortic valve regurgitation. Tricuspid Valve: Tricuspid valve not well visualized. Estimated peak PA systolic pressure 59 mmHg. There is mild tricuspid regurgitation. Pulmonic Valve: There is trace pulmonic regurgitation. Pericardium: There is an anterior echo free space consistent with epicardial fat pad. Aorta: Normal aortic root. IVC: Dilated IVC with respiratory collapse consistent with elevated right atrial pressure. Conclusions 1.Normal left ventricular systolic function. Normal left ventricular cavity size. Normal left ventricular wall thickness. Reduced left ventricular cavity size. Ejection fraction is visually estimated at 65 %. Abnormal Diastolic Function. 2.Mitral valve leaflets appear moderately thickened. Mild mitral leaflet calcification. Trace mitral regurgitation. Moderate mitral stenosis. Mitral valve Max Velocity 3.38 m/sec. MaxPG 45.70 mmHg. MeanPG 19.50 mmHg. Mitral Valve Area by PHT1.30 cm2. 3.Trileaflet aortic valve. Moderate aortic valve regurgitation. 4.Tricuspid valve not well visualized. Estimated peak PA systolic pressure 59 mmHg. There is mild tricuspid regurgitation. Electronically Signed By: Reinaldo Turner 21-Nov-2016 17:33:49 -0800 Patient Name: LISSETTE CAMARILLO Study Date: 21-Nov-2016 [id number]
[2016-11-21 18:38] LABS: HEMATOCRIT 30.8 % (37.0-47.0); HEMOGLOBIN 9.9 g/dl (12.0-16.0)
[2016-11-22] VITALS (12 sets, daily range): BP systolic 133–161; BP diastolic 58–75; PULSE 63–90; RESP 18–68
[2016-11-22] MEDS: PANTOPRAZOLE IV 80 MG in SOD CHLORIDE 0.9% 100 ML IV SCH ×3 (02:03→22:46)
[2016-11-22] MEDS: SOD CHLORIDE 0.9% 1,000 ML IV SCH ×2 (02:03→22:46)
[2016-11-22 07:01] LABS: ADD SCAN DIFF NO
[2016-11-22 07:11] LABS: BASOPHIL # 0.1 10^3/ul (0.0-0.1); BASOPHILS % 0.5 % (0.0-2.0); EOSINOPHILS # 0.3 10^3/ul (0.0-0.5); EOSINOPHILS % 2.3 % (0.0-7.0); HEMATOCRIT 30.5 % (37.0-47.0); HEMOGLOBIN 9.7 g/dl (12.0-16.0); LYMPHOCYTES # 1.4 10^3/ul (0.8-2.9); LYMPHOCYTES % 12.9 % (15.0-51.0); MEAN CORPUSCULAR HGB CONC 31.8 g/dl (32.0-37.0); MEAN CORPUSCULAR VOLUME 94.4 fl (82.0-101.0); MEAN PLATELET VOLUME 10.6 fl (7.4-10.4); MONOCYTE # 0.8 10^3/ul (0.3-0.9); MONOCYTES % 7.4 % (0.0-11.0); NEUTROPHIL # 8.4 10^3/ul (1.6-7.5); NEUTROPHILS % 76.6 % (39.0-77.0); PLATELET COUNT 258 10^3/UL (140-415); RED BLOOD COUNT 3.23 10^6/ul (4.20-5.40); RED CELL DISTRIBUTION WIDTH 13.8 % (11.5-14.5)
[2016-11-22 07:21] LABS: POTASSIUM 4.4 mmol/L (3.5-5.1)
[2016-11-22 07:24] LABS: CREATININE 1.83 mg/dl (0.44-1.00); MAGNESIUM 2.1 mg/dl (1.7-2.5); PHOSPHORUS 4.6 mg/dl (2.5-4.9)
[2016-11-22 07:25] LABS: CALCIUM 8.9 mg/dl (8.4-10.2)
[2016-11-22 07:33] LABS: TROPONIN-I 0.067 ng/ml (0.00-0.12)
--- NOTE | 2016-11-22 08:47 | CONS ---
Date/Time of Note Date/Time of Note DATE: 11/22/16 TIME: 08:45 Assessment/Plan Assessment/Plan Additional Assessment/Plan 1. Preoperative assessment - pre-operative assessment, possible EGD and colonoscopy. The patient has a murmur consistent with significant mitral stenosis, this a very hemodynamically unstable lesion.PER ECHO - moderate MS - still moderate risk for procedure, but reasonable to proceed if needed. Avoid tachycardia, cardiac anesthesia advised. 2. Elevated troponins. The patient has elevated troponin and CK-MB is normal. Troponin is slightly elevated. This is more consistent with chronic troponin elevation rather than acute coronary syndrome. Will continue to monitor for now , will not initiate patient on aspirin because of the bleeding of unclear etiology and rate control with beta lyssa. NO CP now. STABLE. 3. Acute renal failure. Creatinine is elevated, but better from admission. Continue to monitor. 4. Hypertension. Blood pressure modestly well controlled. We will allow for now. BETTER RX now. 5. Arrhythmia. The patient had irregular beat, will transfer to her telemetry 12-lead, EKG to follow. Consultation Date/Type/Reason Admit Date/Time Nov 20, 2016 at 07:25 24 HR Interval Summary Free Text/Dictation PER ECHO - moderate MS - still moderate risk for procedure, but reasonable to proceed if needed. Avoid tachycardia, cardiac anesthesia advised. ROS: No fever, no chills, no nausea, no vomiting, no diarrhea/constipation No recent weight changes No chest pain, no PND, no orthopnea No dizziness, blurred vision No thirst, no heat or cold intolerance Exam/Review of Systems Vital Signs Vitals Vital Signs Date Time Temp Pulse Resp B/P Pulse Ox O2 Delivery O2 Flow Rate FiO2 11/22/16 08:30 75 11/22/16 08:01 97.8 18 144/69 98 11/21/16 00:00 Room Air 11/20/16 16:45 2.0 Intake and Output 11/21/16 11/21/16 11/22/16 15:00 23:00 07:00 Intake Total 780 ml 265 ml Output Total 500 ml Balance -500 ml 780 ml 265 ml Exam General: WN/WD/NAD, AOx 3 HEENT: Unicetric/atraumatic/EOMI (follow commands) NECK: JVD elevated, no thyromegaly Lymph: no lymphadenopathy HEART: regular with no S3, II/ systolic murmur at apex and 2/6 diast m at apex LUNGS: Coarse sounds ABD: soft, NT, ND, +BS : Intact Neuro: non focal SKIN: chronic changes EXT: trace edema Results Result Diagram: 11/22/16 0530 11/22/16 0538 Results 24 hrs Laboratory Tests Test 11/21/16 14:50 11/21/16 18:18 11/22/16 05:30 11/22/16 05:38 Creatine Kinase 177 Creatine Kinase Index 0.8 Creatinine Kinase MB (Mass) 1.50 Troponin I 0.070 0.067 Hematocrit 30.8 L 30.5 L Hemoglobin 9.9 L 9.7 L Basophils # 0.1 Basophils % 0.5 Eosinophils # 0.3 Eosinophils % 2.3 Lymphocytes # 1.4 Lymphocytes % 12.9 L Mean Corpuscular Hemoglobin 30.0 Mean Corpuscular Hemoglobin Concent 31.8 L Mean Corpuscular Volume 94.4 Mean Platelet Volume 10.6 H Monocytes # 0.8 Monocytes % 7.4 Neutrophils # 8.4 H Neutrophils % 76.6 Nucleated Red Blood Cells # 0.0 Nucleated Red Blood Cells % 0.0 Platelet Count 258 Red Blood Count 3.23 L Red Cell Distribution Width 13.8 White Blood Count 11.0 H Anion Gap 23 H Blood Urea Nitrogen 25 H Calcium Level 8.9 Carbon Dioxide Level 16 L Chloride Level 111 H Creatinine 1.83 H Glucose Level 60 #L Magnesium Level 2.1 Phosphorus Level 4.6 Potassium Level 4.4 Sodium Level 146 H Medications Medications Current Medications Sodium Chloride (NS) 1,000 ml @ 50 mls/hr Q20H IV Last administered on t 02:03; Admin Dose 50 MLS/HR; Start 11/19/16 at 23:11 Ondansetron HCl (Zofran Inj) 4 mg Q6H PRN IV NAUSEA AND/OR VOMITING; Start at 23:30 Acetaminophen (Tylenol Supp) 650 mg Q6H PRN [place] PAIN LEVEL 1-3 OR FEVER; Start 11/19/16 at 23:30 Morphine Sulfate 2 mg 2 mg Q4H PRN IV SEVERE PAIN LEVEL 7-10; Start 11/19/16 at 23:30 Pantoprazole/ Sodium Chloride (Protonix Iv/NS) 100 ml @ 10 mls/hr Q10H IV Last administered on 11/22/16 02:03; Admin Dose 10 MLS/HR; Start 11/19/16 at 23 :30 Influenza Virus Vaccine (Fluzone) 0.5 ml ONCE ONCE IM* ; Start 11/22/16 at 09:00 ; Stop 11/22/16 at 09:01 Hydralazine HCl (Apresoline) 10 mg Q6H PRN IV SBP> 160 Last administered on 14:22; Admin Dose 10 MG; Start 11/20/16 at 11:30 Metoprolol Succinate (Toprol Xl) 25 mg DAILY PO Last administered on 11/21/16 08:35; Admin Dose 25 MG; Start 11/21/16 at 09:00 GE HERNANDEZ MD Nov 22, 2016 08:47
[2016-11-22] MEDS ORDERED: INFLUENZA VIRUS VACCINE 0.5 ML (DISPENSING) IM* ONE (09:00)
[2016-11-22] MEDS: METOPROLOL (XL) 25 MG TAB PO SCH (11:00)
[2016-11-22 14:55] LABS: HEMOGLOBIN 10.3 g/dl (12.0-16.0)
--- NOTE | 2016-11-22 16:16 | PN ---
Date/Time of Note Date/Time of Note DATE: 11/22/16 TIME: 16:13 Assessment/Plan VTE Prophylaxis VTE Prophylaxis Intervention: SCD's Lines/Catheters [facility]from [facility] Peripheral IV Assessment/Plan Chief Complaint/Hosp Course Assessment and plan 1. Abdominal pain with underlying GI bleed. Continue on PPI. Of note patient is status post 2 units PRBC. Tentative plan for colonoscopy. We'll follow-up 2. Normocytic normochromic anemia secondary to acute blood loss. Patient improved status post PRBC transfusion. We'll monitor renal panel. Continue on PPI 3. Acute on chronic renal failure. Monitor renal panel. Avoid nephrotoxic medications. 4. Mitral valve stenosis with underlying cardiomyopathy. Patient did report that she was to have surgical intervention for her mitral valve stenosis roughly one year ago in [place]. At that time she did refuse further surgical intervention. Follow-up with cardiology recommendations for now. 5. Elevated troponin. Likely chronic. Continue optimization with cardiovascular medications. 6. Essential hypertension. Continue on antihypertensives and adjust as needed 7. Arthritis. Analgesics as needed. Off NSAIDs because of GI bleed Disposition and plan: Follow up with GI for possible colonoscopy. Discharge when medically stable Discussed but of care with Dr. Ramos Problems: Subjective 24 Hr Interval Summary Free Text/Dictation Denies any chest pressures of breath. No further reports of melena at this time Exam/Review of Systems Vital Signs Vitals Vital Signs Date Time Temp Pulse Resp B/P Pulse Ox O2 Delivery O2 Flow Rate FiO2 11/22/16 15:46 97.6 65 18 156/74 100 11/21/16 00:00 Room Air 11/20/16 16:45 2.0 Intake and Output 11/21/16 11/21/16 11/22/16 15:00 23:00 07:00 Intake Total 780 ml 265 ml Output Total 500 ml Balance -500 ml 780 ml 265 ml Exam General: No acute signs or symptoms of distress Eyes: pupils equal round, Anicteric sclera Neck: Supple nontender, no JVD Cardiac: S1, S2 auscultated, regular rhythm and rate Pulmonary: No coarse rhonchi or breathing auscultated GI: Abdomen soft nontender nondistended, bowel sounds active Extremities: No edema bilateral lower extremities Skin: Clean dry and intact Neurologic: Alert to person place and time and situation Results Result Diagram: 11/22/16 1420 11/22/16 0538 Results 24 hrs Laboratory Tests Test 11/21/16 18:18 11/22/16 05:30 11/22/16 05:38 11/22/16 12:30 Hematocrit 30.8 L 30.5 L Hemoglobin 9.9 L 9.7 L Basophils # 0.1 Basophils % 0.5 Eosinophils # 0.3 Eosinophils % 2.3 Lymphocytes # 1.4 Lymphocytes % 12.9 L Mean Corpuscular Hemoglobin 30.0 Mean Corpuscular Hemoglobin Concent 31.8 L Mean Corpuscular Volume 94.4 Mean Platelet Volume 10.6 H Monocytes # 0.8 Monocytes % 7.4 Neutrophils # 8.4 H Neutrophils % 76.6 Nucleated Red Blood Cells # 0.0 Nucleated Red Blood Cells % 0.0 Platelet Count 258 Red Blood Count 3.23 L Red Cell Distribution Width 13.8 White Blood Count 11.0 H Anion Gap 23 H Blood Urea Nitrogen 25 H Calcium Level 8.9 Carbon Dioxide Level 16 L Chloride Level 111 H Creatinine 1.83 H Glucose Level 60 #L Magnesium Level 2.1 Phosphorus Level 4.6 Potassium Level 4.4 Sodium Level 146 H Troponin I 0.067 Stool Occult Blood NEGATIVE Test 11/22/16 14:20 Hematocrit 32.0 L Hemoglobin 10.3 L Medications Medications Current Medications Sodium Chloride (NS) 1,000 ml @ 50 mls/hr Q20H IV Last administered on 02:03; Admin Dose 50 MLS/HR; Start 11/19/16 at 23:11 Ondansetron HCl (Zofran Inj) 4 mg Q6H PRN IV NAUSEA AND/OR VOMITING; Start at 23:30 Acetaminophen (Tylenol Supp) 650 mg Q6H PRN [place] PAIN LEVEL 1-3 OR FEVER; Start 11/19/16 at 23:30 Morphine Sulfate 2 mg 2 mg Q4H PRN IV SEVERE PAIN LEVEL 7-10; Start 11/19/16 at 23:30 Pantoprazole/ Sodium Chloride (Protonix Iv/NS) 100 ml @ 10 mls/hr Q10H IV Last administered on 11/22/16 13:24; Admin Dose 10 MLS/HR; Start 11/19/16 at 23 :30 Hydralazine HCl (Apresoline) 10 mg Q6H PRN IV SBP> 160 Last administered on 14:22; Admin Dose 10 MG; Start 11/20/16 at 11:30 Metoprolol Succinate (Toprol Xl) 25 mg DAILY PO Last administered on 11/22/16 11:00; Admin Dose 25 MG; Start 11/21/16 at 09:00 ALESIA CHAMBERLAIN Nov 22, 2016 16:16
[2016-11-23] VITALS (15 sets, daily range): BP systolic 89–150; BP diastolic 58–71; PULSE 69–138; RESP 17–18
[2016-11-23] MEDS: SOD CHLORIDE 0.9% 1,000 ML IV SCH (07:11)
[2016-11-23] MEDS: PANTOPRAZOLE IV 80 MG in SOD CHLORIDE 0.9% 100 ML IV SCH ×2 (09:30→21:00)
[2016-11-23] MEDS: METOPROLOL (XL) 25 MG TAB PO SCH (09:30)
[2016-11-23] MEDS ORDERED: ENOXAPARIN 60 MG/0.6 ML SYG SC ONE (11:00)
[2016-11-23] MEDS ORDERED: AMIODARONE 900 MG in DEXTROSE 5% 482 ML IV SCH (12:00)
--- NOTE | 2016-11-23 14:07 | CONS ---
Date/Time of Note Date/Time of Note DATE: 11/23/16 TIME: 14:04 Assessment/Plan Assessment/Plan Additional Assessment/Plan 1. Preoperative assessment - pre-operative assessment, possible EGD and colonoscopy. PER ECHO - moderate MS - still moderate risk for procedure, but reasonable to proceed if needed. Avoid tachycardia, cardiac anesthesia advised. 2. A., fib with RVR - in a setting of MS, not surptrisin - new onset - ada anti- coagulate (even with mild anemia) and ada try to convert to sinus via amiodarone ggt< 24 hrs of a. fib. Patient tachy, but no symptoms per recurrent questioning, BP stable, not in CHF. 3. Elevated troponins. The patient has elevated troponin and CK-MB is normal. Troponin is slightly elevated. This is more consistent with chronic troponin elevation rather than acute coronary syndrome. Will continue to monitor for now , will not initiate patient on aspirin because of the bleeding of unclear etiology and rate control with beta lyssa. NO CP now. STABLE. 3. Acute renal failure. Creatinine is elevated, but better from admission. Continue to monitor. Cr 1.8 today. 4. Hypertension. Blood pressure modestly well controlled. We will allow for now. BETTER RX now. 5. Arrhythmia. The patient had irregular beat, will transfer to her telemetry 12-lead, EKG to follow. Consultation Date/Type/Reason Admit Date/Time Nov 20, 2016 at 07:25 24 HR Interval Summary Free Text/Dictation A. fib with RVR - in a setting of MS, not surptrisin - new onset - ada anti- coagulate (even with mild anemia) and ada try to convert to sinus via amiodarone ggt< 24 hrs of a. fib. Patient tachy, but no symptoms per recurrent questioning, BP stable, not in CHF. ROS: No fever, no chills, no nausea, no vomiting, no diarrhea/constipation No recent weight changes No chest pain, no PND, no orthopnea No dizziness, blurred vision No thirst, no heat or cold intolerance Exam/Review of Systems Vital Signs Vitals Vital Signs Date Time Temp Pulse Resp B/P Pulse Ox O2 Delivery O2 Flow Rate FiO2 11/23/16 13:36 119 104/67 11/23/16 11:39 97.9 18 98 11/21/16 00:00 Room Air 11/20/16 16:45 2.0 Intake and Output 11/22/16 11/22/16 11/23/16 15:00 23:00 07:00 Intake Total 290 ml 480 ml Balance 290 ml 480 ml Exam General: WN/WD/NAD, AOx 3 HEENT: Unicetric/atraumatic/EOMI (follow commands) NECK: JVD elevated, no thyromegaly Lymph: no lymphadenopathy HEART: IRregular, tachy with no S3, II/ systolic murmur at apex and 2/6 at diast apex LUNGS: Coarse sounds ABD: soft, NT, ND, +BS : Intact Neuro: non focal SKIN: chronic changes EXT: trace edema Results Result Diagram: 11/22/16 1420 11/22/16 0538 Results 24 hrs Laboratory Tests Test 11/22/16 14:20 Hematocrit 32.0 L Hemoglobin 10.3 L Medications Medications Current Medications Sodium Chloride (NS) 1,000 ml @ 50 mls/hr Q20H IV Last administered on 22:46; Admin Dose 50 MLS/HR; Start 11/19/16 at 23:11 Ondansetron HCl (Zofran Inj) 4 mg Q6H PRN IV NAUSEA AND/OR VOMITING; Start at 23:30 Acetaminophen (Tylenol Supp) 650 mg Q6H PRN [place] PAIN LEVEL 1-3 OR FEVER; Start 11/19/16 at 23:30 Morphine Sulfate 2 mg 2 mg Q4H PRN IV SEVERE PAIN LEVEL 7-10; Start 11/19/16 at 23:30 Pantoprazole/ Sodium Chloride (Protonix Iv/NS) 100 ml @ 10 mls/hr Q10H IV Last administered on 11/23/16 09:30; Admin Dose 10 MLS/HR; Start 11/19/16 at 23 :30 Hydralazine HCl (Apresoline) 10 mg Q6H PRN IV SBP> 160 Last administered on 14:22; Admin Dose 10 MG; Start 11/20/16 at 11:30 Metoprolol Succinate 25 mg 25 mg DAILY PO Last administered on 11/23/16 09:30 ; Admin Dose 25 MG; Start 11/21/16 at 09:00 Amiodarone HCl/ Dextrose (Cordarone Iv/ D5W) 500 ml @ 0 mls/hr Q0M IV Last administered on 11/23/16t 12:15; Admin Dose 33.4 MLS/HR; Start 11/23/16 at 12:00 ; Stop 11/24/16 at 11:59 GE HERNANDEZ MD Nov 23, 2016 14:07
[2016-11-23 15:05] LABS: ADD SCAN DIFF NO
[2016-11-23 15:07] LABS: BASOPHIL # 0.1 10^3/ul (0.0-0.1); BASOPHILS % 0.4 % (0.0-2.0); EOSINOPHILS # 0.2 10^3/ul (0.0-0.5); EOSINOPHILS % 1.3 % (0.0-7.0); HEMATOCRIT 33.8 % (37.0-47.0); HEMOGLOBIN 10.6 g/dl (12.0-16.0); LYMPHOCYTES # 1.2 10^3/ul (0.8-2.9); LYMPHOCYTES % 10.5 % (15.0-51.0); MEAN CORPUSCULAR HEMOGLOBIN 29.9 pg (29.0-33.0); MEAN CORPUSCULAR HGB CONC 31.4 g/dl (32.0-37.0); MEAN CORPUSCULAR VOLUME 95.5 fl (82.0-101.0); MEAN PLATELET VOLUME 10.6 fl (7.4-10.4); MONOCYTE # 0.7 10^3/ul (0.3-0.9); MONOCYTES % 5.8 % (0.0-11.0); NEUTROPHIL # 9.1 10^3/ul (1.6-7.5); NEUTROPHILS % 81.6 % (39.0-77.0); PLATELET COUNT 263 10^3/UL (140-415); RED BLOOD COUNT 3.54 10^6/ul (4.20-5.40); RED CELL DISTRIBUTION WIDTH 13.9 % (11.5-14.5); WHITE BLOOD COUNT 11.2 10^3/ul (4.8-10.8)
[2016-11-23 15:21] LABS: POTASSIUM 4.7 mmol/L (3.5-5.1)
[2016-11-23 15:24] LABS: CREATININE 1.87 mg/dl (0.44-1.00)
[2016-11-23 15:25] LABS: CALCIUM 9.1 mg/dl (8.4-10.2)
--- NOTE | 2016-11-23 16:18 | PN ---
Date/Time of Note Date/Time of Note DATE: 11/23/16 TIME: 16:16 Assessment/Plan VTE Prophylaxis VTE Prophylaxis Intervention: SCD's Lines/Catheters IV Catheter Type (from Nrs): Peripheral IV Assessment/Plan Chief Complaint/Hosp Course Assessment and plan 1. Abdominal pain with underlying GI bleed. Continue on PPI. Of note patient is status post 2 units PRBC. Tentative plan for colonoscopy. We'll follow-up 2. Normocytic normochromic anemia secondary to acute blood loss. Patient improved status post PRBC transfusion. We'll monitor renal panel. Continue on PPI 3. Acute on chronic renal failure. Monitor renal panel. Avoid nephrotoxic medications. 4. Mitral valve stenosis with underlying cardiomyopathy. Patient did report that she was to have surgical intervention for her mitral valve stenosis roughly one year ago in [place]. At that time she did refuse further surgical intervention. Follow-up with cardiology recommendations for now. 5. Elevated troponin. Likely chronic. Continue optimization with cardiovascular medications. 6. Essential hypertension. Continue on antihypertensives and adjust as needed 7. Arthritis. Analgesics as needed. Off NSAIDs because of GI bleed 8. A. fib with RVR. On amiodarone drip. 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 Anticoagulation per water rights specialist Disposition and plan: Follow up with GI for possible colonoscopy. Continue on amiodarone for water rights specialist. Discussed but of care with Dr. Ramos Problems: Subjective 24 Hr Interval Summary Free Text/Dictation Denies any chest pain at this time. Was reported with A. fib with RVR this morning. Currently on amiodarone drip Exam/Review of Systems Vital Signs Vitals Vital Signs Date Time Temp Pulse Resp B/P Pulse Ox O2 Delivery O2 Flow Rate FiO2 11/23/16 15:34 97.9 113 18 100/66 92 11/21/16 00:00 Room Air 11/20/16 16:45 2.0 Intake and Output 11/22/16 11/22/16 11/23/16 15:00 23:00 07:00 Intake Total 290 ml 480 ml Balance 290 ml 480 ml Exam General: No acute signs or symptoms of distress Eyes: pupils equal round, Anicteric sclera Neck: Supple nontender, no JVD Cardiac: S1, S2 auscultated, regular rhythm. Heart murmur auscultated Pulmonary: No coarse rhonchi or breathing auscultated GI: Abdomen soft nontender nondistended, bowel sounds active Extremities: No edema bilateral lower extremities Skin: Clean dry and intact Neurologic: Alert to person place and time and situation Results Result Diagram: 11/23/16 1500 11/23/16 1500 Results 24 hrs Laboratory Tests Test 11/23/16 15:00 Anion Gap 24 H Basophils # 0.1 Basophils % 0.4 Blood Urea Nitrogen 27 H Calcium Level 9.1 Carbon Dioxide Level 14 L Chloride Level 112 H Creatinine 1.87 H Eosinophils # 0.2 Eosinophils % 1.3 Glucose Level 84 Hematocrit 33.8 L Hemoglobin 10.6 L Lymphocytes # 1.2 Lymphocytes % 10.5 L Mean Corpuscular Hemoglobin 29.9 Mean Corpuscular Hemoglobin Concent 31.4 L Mean Corpuscular Volume 95.5 Mean Platelet Volume 10.6 H Monocytes # 0.7 Monocytes % 5.8 Neutrophils # 9.1 H Neutrophils % 81.6 H Nucleated Red Blood Cells # 0.0 Nucleated Red Blood Cells % 0.0 Platelet Count 263 Potassium Level 4.7 Red Blood Count 3.54 L Red Cell Distribution Width 13.9 Sodium Level 145 H White Blood Count 11.2 H Medications Medications Current Medications Sodium Chloride (NS) 1,000 ml @ 50 mls/hr Q20H IV Last administered on 22:46; Admin Dose 50 MLS/HR; Start 11/19/16 at 23:11 Ondansetron HCl (Zofran Inj) 4 mg Q6H PRN IV NAUSEA AND/OR VOMITING; Start at 23:30 Acetaminophen (Tylenol Supp) 650 mg Q6H PRN [place] PAIN LEVEL 1-3 OR FEVER; Start 11/19/16 at 23:30 Morphine Sulfate 2 mg 2 mg Q4H PRN IV SEVERE PAIN LEVEL 7-10; Start 11/19/16 at 23:30 Pantoprazole/ Sodium Chloride (Protonix Iv/NS) 100 ml @ 10 mls/hr Q10H IV Last administered on 11/23/16 09:30; Admin Dose 10 MLS/HR; Start 11/19/16 at 23 :30 Hydralazine HCl (Apresoline) 10 mg Q6H PRN IV SBP> 160 Last administered on 14:22; Admin Dose 10 MG; Start 11/20/16 at 11:30 Metoprolol Succinate 25 mg 25 mg DAILY PO Last administered on 11/23/16 09:30 ; Admin Dose 25 MG; Start 11/21/16 at 09:00 Amiodarone HCl/ Dextrose (Cordarone Iv/ D5W) 500 ml @ 0 mls/hr Q0M IV Last administered on 11/23/16 12:15; Admin Dose 33.4 MLS/HR; Start 11/23/16 at 12:00 ; Stop 11/24/16 at 11:59 ALESIA CHAMBERLAIN Nov 23, 2016 16:18
[2016-11-23] MEDS ORDERED: MAGNESIUM CITRATE 300 ML BTL PO ONE ×2 (17:30→20:00)
--- NOTE | 2016-11-23 17:58 | RADRPT ---
Vent Rate: 85 bpm RR Interval: 0 msec NE Interval: 176 msec QRS Duration: 72 msec QT Interval: 396 msec QTC Interval: 471 msec P-R-T [place]: 65 - 86 - 78 degrees Normal sinus rhythm Possible Left atrial enlargement Nonspecific ST abnormality Abnormal ECG Electronically Signed By: Rahul Rangel [id number]
[2016-11-23] MEDS ORDERED: POLYETHYLENE GLYCOL 3350 119 GM POWDER PO ONE ×2 (18:30→22:00)
[2016-11-23] MEDS ORDERED: BISACODYL (EC) 5 MG TAB PO ONE ×2 (18:30→19:00)
--- NOTE | 2016-11-23 18:43 | CONS ---
Date/Time of Note Date/Time of Note DATE: 11/23/16 TIME: 18:37 Assessment/Plan Assessment/Plan Additional Assessment/Plan Assessment: * GI bleeding/hematochezia * Rule out colonic i.e. inflammatory, ischemic, neoplastic versus hemorrhoidal * Abdominal pain/diarrhea * Rule out inflammatory, ischemic * Anemia related to a problem * History of critical mitral valve stenosis. Patient scheduled for surgery but refused * History of cardiomyopathy/CHF diastolic dysfunction * Acute on chronic renal failure * History of gouty arthritis Plan: * Monitor H&H and transfuse to a safe level as needed * Stool studies as ordered * Colonoscopy was explained to the patient and her family including risks benefits and alternatives. They are agreeable to proceed once cleared by cardiology. * Further recommendations pending clinical course * Patient seen in collaboration with Dr. Boyd Consultation Date/Type/Reason Admit Date/Time Nov 20, 2016 at 07:25 Initial Consult Date Reason for Consultation Anemia 24 HR Interval Summary Free Text/Dictation Patient consents to colonoscopy Bowel prep in process R/B/A of procedure explained to patient and son and they are agreeable to proceed Started on amiodarone drip Exam/Review of Systems Vital Signs Vitals Vital Signs Date Time Temp Pulse Resp B/P Pulse Ox O2 Delivery O2 Flow Rate FiO2 11/23/16 16:00 126 11/23/16 15:34 97.9 18 100/66 92 11/21/16 00:00 Room Air 11/20/16 16:45 2.0 Intake and Output 11/22/16 11/22/16 11/23/16 15:00 23:00 07:00 Intake Total 290 ml 480 ml Balance 290 ml 480 ml Exam Constitutional: alert, oriented, well developed Psych: nl mood/affect, no complaints Head: atraumatic, normocephalic Eyes: EOMI, PERRL, nl conjunctiva, nl lids, nl sclera ENMT: nl external ears & nose, nl lips & teeth, nl nasal mucosa & septum Neck: non-tender, supple Respiratory: clear to auscultation, normal air movement Cardiovascular: murmurs/extra sounds (Systolic murmur), nl pulses, regular rate and rhythm, No gallop Gastrointestinal: bowel sounds, nl liver, spleen, non-tender, soft, No ascites, No distended, No hepatomegaly, No mass, No rebound or guarding, No splenomegaly, No tender Musculoskeletal: nl extremities to inspection, nl gait and stance Extremities: normal pulses Neurological: DRUG SAFETY SPECIALIST II-XII intact, nl mental status, nl speech, nl strength Skin: nl turgor, No rash or lesions Lymph: nl lymph nodes Results Result Diagram: 11/23/16 1500 11/23/16 1500 Results 24 hrs Laboratory Tests Test 11/23/16 15:00 Anion Gap 24 H Basophils # 0.1 Basophils % 0.4 Blood Urea Nitrogen 27 H Calcium Level 9.1 Carbon Dioxide Level 14 L Chloride Level 112 H Creatinine 1.87 H Eosinophils # 0.2 Eosinophils % 1.3 Glucose Level 84 Hematocrit 33.8 L Hemoglobin 10.6 L Lymphocytes # 1.2 Lymphocytes % 10.5 L Mean Corpuscular Hemoglobin 29.9 Mean Corpuscular Hemoglobin Concent 31.4 L Mean Corpuscular Volume 95.5 Mean Platelet Volume 10.6 H Monocytes # 0.7 Monocytes % 5.8 Neutrophils # 9.1 H Neutrophils % 81.6 H Nucleated Red Blood Cells # 0.0 Nucleated Red Blood Cells % 0.0 Platelet Count 263 Potassium Level 4.7 Red Blood Count 3.54 L Red Cell Distribution Width 13.9 Sodium Level 145 H White Blood Count 11.2 H Medications Medications Current Medications Sodium Chloride (NS) 1,000 ml @ 50 mls/hr Q20H IV Last administered on 22:46; Admin Dose 50 MLS/HR; Start 11/19/16 at 23:11 Ondansetron HCl (Zofran Inj) 4 mg Q6H PRN IV NAUSEA AND/OR VOMITING; Start at 23:30 Acetaminophen (Tylenol Supp) 650 mg Q6H PRN [place] PAIN LEVEL 1-3 OR FEVER; Start 11/19/16 at 23:30 Morphine Sulfate 2 mg 2 mg Q4H PRN IV SEVERE PAIN LEVEL 7-10; Start 11/19/16 at 23:30 Pantoprazole/ Sodium Chloride (Protonix Iv/NS) 100 ml @ 10 mls/hr Q10H IV Last administered on 11/23/16 09:30; Admin Dose 10 MLS/HR; Start 11/19/16 at 23 :30 Hydralazine HCl (Apresoline) 10 mg Q6H PRN IV SBP> 160 Last administered on 14:22; Admin Dose 10 MG; Start 11/20/16 at 11:30 Metoprolol Succinate 25 mg 25 mg DAILY PO Last administered on 11/23/16 09:30 ; Admin Dose 25 MG; Start 11/21/16 at 09:00 Amiodarone HCl/ Dextrose (Cordarone Iv/ D5W) 500 ml @ 0 mls/hr Q0M IV Last administered on 11/23/16 12:15; Admin Dose 33.4 MLS/HR; Start 11/23/16 at 12:00 ; Stop 11/24/16 at 11:59 Bisacodyl (Dulcolax) 10 mg ONCE ONCE PO ; Start 11/23/16 at 18:30; Stop at 18:31; Status UNV Magnesium Citrate (Citroma) 300 ml ONCE ONCE PO ; Start 11/23/16 at 17:30; Stop 11/23/16 at 17:31; Status UNV Polyethylene Glycol (Miralax) 119 gm ONCE ONCE PO ; Start 11/23/16 at 18:30; Stop 11/23/16 at 18:31; Status UNV BONNIE PULIDO Nov 23, 2016 18:43
[2016-11-24] VITALS (9 sets, daily range): BP systolic 122–129; BP diastolic 62–79; PULSE 97–134; RESP 18–19
[2016-11-24] MEDS: SOD CHLORIDE 0.9% 1,000 ML IV SCH ×3 (03:11→23:48)
[2016-11-24] MEDS: PANTOPRAZOLE IV 80 MG in SOD CHLORIDE 0.9% 100 ML IV SCH ×3 (03:30→23:04)
[2016-11-24] MEDS ORDERED: POLYETHYLENE GLYCOL 3350 119 GM POWDER PO ONE (06:00)
[2016-11-24] MEDS ORDERED: BISACODYL (EC) 5 MG TAB PO ONE (08:00)
[2016-11-24 08:27] LABS: ADD SCAN DIFF NO
[2016-11-24 08:41] LABS: BASOPHILS % 0.4 % (0.0-2.0); EOSINOPHILS # 0.3 10^3/ul (0.0-0.5); EOSINOPHILS % 2.5 % (0.0-7.0); HEMATOCRIT 35.1 % (37.0-47.0); HEMOGLOBIN 11.2 g/dl (12.0-16.0); LYMPHOCYTES # 1.5 10^3/ul (0.8-2.9); MEAN CORPUSCULAR HEMOGLOBIN 29.9 pg (29.0-33.0); MEAN CORPUSCULAR HGB CONC 31.9 g/dl (32.0-37.0); MEAN CORPUSCULAR VOLUME 93.6 fl (82.0-101.0); MEAN PLATELET VOLUME 10.9 fl (7.4-10.4); MONOCYTES % 8.8 % (0.0-11.0); NEUTROPHIL # 8.2 10^3/ul (1.6-7.5); PLATELET COUNT 287 10^3/UL (140-415); RED BLOOD COUNT 3.75 10^6/ul (4.20-5.40); RED CELL DISTRIBUTION WIDTH 14.2 % (11.5-14.5)
[2016-11-24] MEDS: METOPROLOL (XL) 25 MG TAB PO SCH ×2 (08:41→23:04)
[2016-11-24 08:45] LABS: POTASSIUM 4.4 mmol/L (3.5-5.1)
[2016-11-24 08:47] LABS: CREATININE 1.72 mg/dl (0.44-1.00)
[2016-11-24 08:48] LABS: CALCIUM 9.1 mg/dl (8.4-10.2)
--- NOTE | 2016-11-24 14:19 | CONS ---
Date/Time of Note Date/Time of Note DATE: 11/24/16 TIME: 14:13 Assessment/Plan Assessment/Plan Chief Complaint/Hosp Course IMp: 1.AF with RVR on amio 2.Positive tropponin-now trended negative in setting of renal failure/rapid AF 3.MS-moderate to severe by echo/gradient 4.GIB 5.HTN 6.REnal failure Recc: -Tele -serial ecg;s -Continue amio IV to completion and then transition to PO amimo as able to take -Partial IVP digoxin load to improve HR control -IVP BB until able to take PO's Problems: Consultation Date/Type/Reason Admit Date/Time Nov 20, 2016 at 07:25 Initial Consult Date 11/22/16 Type of Consultation: Cardiology Reason for Consultation AF with RVR Referring Provider: KRISTEN BOWLING MD Exam/Review of Systems Vital Signs Vitals Vital Signs Date Time Temp Pulse Resp B/P Pulse Ox O2 Delivery O2 Flow Rate FiO2 11/24/16 12:04 112 11/24/16 11:58 97.7 19 123/79 99 11/21/16 00:00 Room Air 11/20/16 16:45 2.0 Intake and Output 11/23/16 11/23/16 11/24/16 15:00 23:00 07:00 Intake Total 1300 ml Balance 1300 ml Exam Review of Systems: CONSTITUTIONAL: No fevers, chills. PULMONARY: No sob CARDIOVASCULAR: No chest pain/palpitations GASTROINTESTINAL: No nausea/vomiting. GENITOURINARY: No hematuria/dysuria. MUSCULOSKELETAL: No myagias/arthalgias. PSYCHIATRIC: The patient denies depression. NEUROLOGIC: No weakness Constitutional: alert, oriented Psych: no complaints Head: normocephalic ENMT: mucosa pink and moist Neck: jvd (9 cm water), supple Respiratory: diminished breath sounds (at bases/B) Cardiovascular: irregular rhythm (tachycardia) Gastrointestinal: non-tender, soft Musculoskeletal: muscle tone (normal) Extremities: edema (none) Neurological: other (No focal deficits) Results Result Diagram: 11/24/16 0742 11/24/16 0742 Results 24 hrs Laboratory Tests Test 11/23/16 15:00 11/24/16 07:42 Anion Gap 24 H 20 H Basophils # 0.1 0.0 Basophils % 0.4 0.4 Blood Urea Nitrogen 27 H 20 Calcium Level 9.1 9.1 Carbon Dioxide Level 14 L 18 L Chloride Level 112 H 108 Creatinine 1.87 H 1.72 H Eosinophils # 0.2 0.3 Eosinophils % 1.3 2.5 Glucose Level 84 104 Hematocrit 33.8 L 35.1 L Hemoglobin 10.6 L 11.2 L Lymphocytes # 1.2 1.5 Lymphocytes % 10.5 L 14.0 L Mean Corpuscular Hemoglobin 29.9 29.9 Mean Corpuscular Hemoglobin Concent 31.4 L 31.9 L Mean Corpuscular Volume 95.5 93.6 Mean Platelet Volume 10.6 H 10.9 H Monocytes # 0.7 1.0 H Monocytes % 5.8 8.8 Neutrophils # 9.1 H 8.2 H Neutrophils % 81.6 H 74.0 Nucleated Red Blood Cells # 0.0 0.0 Nucleated Red Blood Cells % 0.0 0.0 Platelet Count 263 287 Potassium Level 4.7 4.4 Red Blood Count 3.54 L 3.75 L Red Cell Distribution Width 13.9 14.2 Sodium Level 145 H 142 White Blood Count 11.2 H 11.0 H Medications Medications Current Medications Sodium Chloride (NS) 1,000 ml @ 50 mls/hr Q20H IV Last administered on 03:11; Admin Dose 50 MLS/HR; Start 11/19/16 at 23:11 Ondansetron HCl (Zofran Inj) 4 mg Q6H PRN IV NAUSEA AND/OR VOMITING; Start at 23:30 Acetaminophen (Tylenol Supp) 650 mg Q6H PRN [place] PAIN LEVEL 1-3 OR FEVER; Start 11/19/16 at 23:30 Morphine Sulfate 2 mg 2 mg Q4H PRN IV SEVERE PAIN LEVEL 7-10; Start 11/19/16 at 23:30 Pantoprazole/ Sodium Chloride (Protonix Iv/NS) 100 ml @ 10 mls/hr Q10H IV Last administered on 11/24/16 08:49; Admin Dose 10 MLS/HR; Start 11/19/16 at 23: 30 Hydralazine HCl (Apresoline) 10 mg Q6H PRN IV SBP> 160 Last administered on 14:22; Admin Dose 10 MG; Start 11/20/16 at 11:30 Metoprolol Succinate (Toprol Xl) 25 mg DAILY PO Last administered on 11/24/16t 08:41; Admin Dose 25 MG; Start 11/21/16 at 09:00 JOSE MUNIZ Nov 24, 2016 14:19
[2016-11-24] MEDS ORDERED: DILTIAZEM 25 MG INJ IV PRN (14:30)
--- NOTE | 2016-11-24 15:35 | PN ---
Date/Time of Note Date/Time of Note DATE: 11/24/16 TIME: 15:32 Assessment/Plan VTE Prophylaxis VTE Prophylaxis Intervention: SCD's Lines/Catheters IV [facility]ter Type (from [facility]): Peripheral IV Urinary Cath still in place: No Assessment/Plan Chief Complaint/Hosp Course Assessment and plan 1. Abdominal pain with underlying GI bleed. Continue on PPI. Of note patient is status post 2 units PRBC with good improvement. At this time patient family refusing colonoscopy. We'll follow-up with GI recommendations 2. Normocytic normochromic anemia secondary to acute blood loss. Patient improved status post PRBC transfusion. Improved at this time. Monitor H&H. Continue on PPI 3. Acute on chronic renal failure. Monitor renal panel. Avoid nephrotoxic medications. 4. Mitral valve stenosis with underlying cardiomyopathy. Patient did report that she was to have surgical intervention for her mitral valve stenosis roughly one year ago in [place]. At that time she did refuse further surgical intervention. Follow-up with cardiology recommendations for now. 5. Elevated troponin. Likely chronic. Continue optimization with cardiovascular medications.. Denies any chest pain. Stable at present 6. Essential hypertension. Continue on antihypertensives and adjust as needed 7. Arthritis. Analgesics as needed. Off NSAIDs because of GI bleed no 8. A. fib with RVR. Still with fast artery. Amiodarone discontinued. Continue on diltiazem per cardiology. Monitor for improvement Disposition and plan: Patient refusing colonoscopy at this time for her reported GI bleed. Follow-up with GI recommendations. Continue on PPI. Monitor for improvement of patient's tachycardia. On diltiazem for now. Continue telemetry monitoring Discussed but of care with Dr. Ramos Problems: Subjective 24 Hr Interval Summary Free Text/Dictation Still with reported fast heart rate. Denies any chest pain. Exam/Review of Systems Vital Signs Vitals Vital Signs Date Time Temp Pulse Resp B/P Pulse Ox O2 Delivery O2 Flow Rate FiO2 11/24/16 12:04 112 11/24/16 11:58 97.7 19 123/79 99 11/21/16 00:00 Room Air 11/20/16 16:45 2.0 Intake and Output 11/23/16 11/23/16 11/24/16 15:00 23:00 07:00 Intake Total 1300 ml Balance 1300 ml Exam General: Comfortable at present. No apparent distress Eyes: pupils equal round, Anicteric sclera Neck: Supple nontender, no JVD Cardiac: S1-S2 auscultated. Noted with heart murmur Pulmonary: Oh obvious wheezing or rhonchi GI: Soft nontender nondistended Extremities: No edema bilateral lower extremities Skin: Clean dry and intact Neurologic: Alert to person place and time and situation Results Result Diagram: 11/24/16 0742 11/24/16 0742 Results 24 hrs Laboratory Tests Test 11/24/16 07:42 Anion Gap 20 H Basophils # 0.0 Basophils % 0.4 Blood Urea Nitrogen 20 Calcium Level 9.1 Carbon Dioxide Level 18 L Chloride Level 108 Creatinine 1.72 H Eosinophils # 0.3 Eosinophils % 2.5 Glucose Level 104 Hematocrit 35.1 L Hemoglobin 11.2 L Lymphocytes # 1.5 Lymphocytes % 14.0 L Mean Corpuscular Hemoglobin 29.9 Mean Corpuscular Hemoglobin Concent 31.9 L Mean Corpuscular Volume 93.6 Mean Platelet Volume 10.9 H Monocytes # 1.0 H Monocytes % 8.8 Neutrophils # 8.2 H Neutrophils % 74.0 Nucleated Red Blood Cells # 0.0 Nucleated Red Blood Cells % 0.0 Platelet Count 287 Potassium Level 4.4 Red Blood Count 3.75 L Red Cell Distribution Width 14.2 Sodium Level 142 White Blood Count 11.0 H Medications Medications Current Medications Sodium Chloride (NS) 1,000 ml @ 50 mls/hr Q20H IV Last administered on 03:11; Admin Dose 50 MLS/HR; Start 11/19/16 at 23:11 Ondansetron HCl (Zofran Inj) 4 mg Q6H PRN IV NAUSEA AND/OR VOMITING; Start at 23:30 Acetaminophen (Tylenol Supp) 650 mg Q6H PRN [place] PAIN LEVEL 1-3 OR FEVER; Start 11/19/16 at 23:30 Morphine Sulfate 2 mg 2 mg Q4H PRN IV SEVERE PAIN LEVEL 7-10; Start 11/19/16 at 23:30 Pantoprazole/ Sodium Chloride (Protonix Iv/NS) 100 ml @ 10 mls/hr Q10H IV Last administered on 11/24/16 08:49; Admin Dose 10 MLS/HR; Start 11/19/16 at 23: 30 Hydralazine HCl (Apresoline) 10 mg Q6H PRN IV SBP> 160 Last administered on t 14:22; Admin Dose 10 MG; Start 11/20/16 at 11:30 Metoprolol Succinate (Toprol Xl) 25 mg BID PO ; Start 11/24/16 at 21:00 Digoxin (Digoxin) 250 mcg Q6H IV ; Start 11/24/16 at 15:00; Stop 11/24/16 at 21:01 Diltiazem HCl (Cardizem Iv) 5 mg Q4 PRN IV HR>110; Start 11/24/16 at 14:30 ALESIA CHAMBERLAIN Nov 24, 2016 15:35
[2016-11-24] MEDS: DIGOXIN 500 MCG INJ IV SCH ×2 (15:37→22:56)
[2016-11-24] MEDS ORDERED: AMIODARONE 200 MG TAB PO ONE (16:00)
--- NOTE | 2016-11-24 16:07 | CONS ---
Date/Time of Note Date/Time of Note DATE: 11/24/16 TIME: 16:01 Assessment/Plan Assessment/Plan Additional Assessment/Plan Assessment: * GI bleeding/hematochezia * Rule out colonic i.e. inflammatory, ischemic, neoplastic versus hemorrhoidal * Pt declines colonoscopy * Abdominal pain/diarrhea * Rule out inflammatory, ischemic * Anemia related to a problem * History of critical mitral valve stenosis. Patient scheduled for surgery but refused * History of cardiomyopathy/CHF diastolic dysfunction * Acute on chronic renal failure * History of gouty arthritis Plan: * Monitor H&H and transfuse to a safe level as needed * Stool studies as ordered * Colonoscopy was explained to the patient and her family including risks benefits and alternatives. Pt now declines procedure. Recommend OP colonoscopy if pt is agreeable. * Further recommendations pending clinical course * Patient seen in collaboration with Dr. Boyd Consultation Date/Type/Reason Admit Date/Time Nov 20, 2016 at 07:25 Type of Consultation: GI Referring Provider: KRISTEN BOWLING MD 24 HR Interval Summary Free Text/Dictation Pt now declines colonoscopy Pt fully aware of risks of not completing procedure if she has a LGIB Recommend OP colonoscopy Will advance diet Exam/Review of Systems Vital Signs Vitals Vital Signs Date Time Temp Pulse Resp B/P Pulse Ox O2 Delivery O2 Flow Rate FiO2 11/24/16 12:04 112 11/24/16 11:58 97.7 19 123/79 99 11/21/16 00:00 Room Air 11/20/16 16:45 2.0 Intake and Output 11/23/16 11/23/16 11/24/16 15:00 23:00 07:00 Intake Total 1300 ml Balance 1300 ml Exam Constitutional: alert, oriented, well developed Psych: nl mood/affect, no complaints Head: atraumatic, normocephalic Eyes: EOMI, PERRL, nl conjunctiva, nl lids, nl sclera ENMT: nl external ears & nose, nl lips & teeth, nl nasal mucosa & septum Neck: non-tender, supple Respiratory: clear to auscultation, normal air movement Cardiovascular: murmurs/extra sounds (Systolic murmur), nl pulses, regular rate and rhythm, No gallop Gastrointestinal: bowel sounds, nl liver, spleen, non-tender, soft, No ascites, No distended, No hepatomegaly, No mass, No rebound or guarding, No splenomegaly, No tender Musculoskeletal: nl extremities to inspection, nl gait and stance Extremities: normal pulses Neurological: [employer] II-XII intact, nl mental status, nl speech, nl strength Skin: nl turgor, No rash or lesions Lymph: nl lymph nodes Results Result Diagram: 11/24/16 0742 11/24/16 0742 Results 24 hrs Laboratory Tests Test 11/24/16 07:42 Anion Gap 20 H Basophils # 0.0 Basophils % 0.4 Blood Urea Nitrogen 20 Calcium Level 9.1 Carbon Dioxide Level 18 L Chloride Level 108 Creatinine 1.72 H Eosinophils # 0.3 Eosinophils % 2.5 Glucose Level 104 Hematocrit 35.1 L Hemoglobin 11.2 L Lymphocytes # 1.5 Lymphocytes % 14.0 L Mean Corpuscular Hemoglobin 29.9 Mean Corpuscular Hemoglobin Concent 31.9 L Mean Corpuscular Volume 93.6 Mean Platelet Volume 10.9 H Monocytes # 1.0 H Monocytes % 8.8 Neutrophils # 8.2 H Neutrophils % 74.0 Nucleated Red Blood Cells # 0.0 Nucleated Red Blood Cells % 0.0 Platelet Count 287 Potassium Level 4.4 Red Blood Count 3.75 L Red Cell Distribution Width 14.2 Sodium Level 142 White Blood Count 11.0 H Medications Medications Current Medications Sodium Chloride (NS) 1,000 ml @ 50 mls/hr Q20H IV Last administered on 15:44; Admin Dose 50 MLS/HR; Start 11/19/16 at 23:11 Ondansetron HCl (Zofran Inj) 4 mg Q6H PRN IV NAUSEA AND/OR VOMITING; Start at 23:30 Acetaminophen (Tylenol Supp) 650 mg Q6H PRN [place] PAIN LEVEL 1-3 OR FEVER; Start 11/19/16 at 23:30 Morphine Sulfate 2 mg 2 mg Q4H PRN IV SEVERE PAIN LEVEL 7-10; Start 11/19/16 at 23:30 Pantoprazole/ Sodium Chloride (Protonix Iv/NS) 100 ml @ 10 mls/hr Q10H IV Last administered on 11/24/16 08:49; Admin Dose 10 MLS/HR; Start 11/19/16 at 23: 30 Hydralazine HCl (Apresoline) 10 mg Q6H PRN IV SBP> 160 Last administered on 14:22; Admin Dose 10 MG; Start 11/20/16 at 11:30 Metoprolol Succinate (Toprol Xl) 25 mg BID PO ; Start 11/24/16 at 21:00 Digoxin (Digoxin) 250 mcg Q6H IV Last administered on 11/24/16 15:37; Admin Dose 250 MCG; Start 11/24/16 at 15:00; Stop 11/24/16 at 21:01 Diltiazem HCl (Cardizem Iv) 5 mg Q4 PRN IV HR>110; Start 11/24/16 at 14:30 Amiodarone HCl (Cordarone) 200 mg BID PO ; Start 11/24/16 at 21:00 Amiodarone HCl (Cordarone) 200 mg ONCE ONCE PO ; Start 11/24/16 at 16:00; Stop 11/24/16 at 16:01 BONNIE PULIDO Nov 24, 2016 16:07
[2016-11-24] MEDS: AMIODARONE 200 MG TAB PO SCH (23:04)
[2016-11-25] VITALS (10 sets, daily range): BP systolic 111–152; BP diastolic 58–80; PULSE 91–126; RESP 14–20
[2016-11-25 06:37] LABS: ADD SCAN DIFF NO
[2016-11-25 06:49] LABS: BASOPHILS % 0.3 % (0.0-2.0); EOSINOPHILS # 0.3 10^3/ul (0.0-0.5); EOSINOPHILS % 2.5 % (0.0-7.0); LYMPHOCYTES # 1.4 10^3/ul (0.8-2.9); LYMPHOCYTES % 13.2 % (15.0-51.0); MEAN CORPUSCULAR HEMOGLOBIN 30.7 pg (29.0-33.0); MEAN CORPUSCULAR HGB CONC 33.3 g/dl (32.0-37.0); MEAN CORPUSCULAR VOLUME 92.2 fl (82.0-101.0); MEAN PLATELET VOLUME 10.8 fl (7.4-10.4); MONOCYTE # 1.1 10^3/ul (0.3-0.9); MONOCYTES % 10.7 % (0.0-11.0); NEUTROPHIL # 7.7 10^3/ul (1.6-7.5); NEUTROPHILS % 72.9 % (39.0-77.0); PLATELET COUNT 254 10^3/UL (140-415); RED BLOOD COUNT 3.58 10^6/ul (4.20-5.40); RED CELL DISTRIBUTION WIDTH 13.8 % (11.5-14.5); WHITE BLOOD COUNT 10.6 10^3/ul (4.8-10.8)
[2016-11-25 06:58] LABS: CREATININE 1.58 mg/dl (0.44-1.00)
[2016-11-25 06:59] LABS: CALCIUM 8.8 mg/dl (8.4-10.2)
[2016-11-25] MEDS: METOPROLOL (XL) 25 MG TAB PO SCH (08:12)
[2016-11-25] MEDS: AMIODARONE 200 MG TAB PO SCH ×2 (08:12→20:46)
[2016-11-25] MEDS: PANTOPRAZOLE IV 80 MG in SOD CHLORIDE 0.9% 100 ML IV SCH ×2 (12:08→20:43)
[2016-11-25] MEDS: SOD CHLORIDE 0.9% 1,000 ML IV SCH ×2 (12:09→19:11)
--- NOTE | 2016-11-25 16:49 | PN ---
Date/Time of Note Date/Time of Note DATE: 11/25/16 TIME: 16:48 Assessment/Plan VTE Prophylaxis VTE Prophylaxis Intervention: SCD's Lines/Catheters IV [facility] Type [facility] Peripheral IV Urinary Cath still in place: No Assessment/Plan Chief Complaint/Hosp Course Assessment and plan 1. Abdominal pain with underlying GI bleed. Continue on PPI. Of note patient is status post 2 units PRBC with good improvement. At this time patient family refusing colonoscopy. Possible plan for outpatient colonoscopy. H&H remained stable at present 2. Normocytic normochromic anemia secondary to acute blood loss. Patient improved status post PRBC transfusion. Improved at this time. Continue on PPI 3. Acute on chronic renal failure. Monitor renal panel. Avoid nephrotoxic medications. Appears stable at this time 4. Mitral valve stenosis with underlying cardiomyopathy. Patient did report that she was to have surgical intervention for her mitral valve stenosis roughly one year ago in [place]. At that time she did refuse further surgical intervention. Continue optimization with cardiovascular medications. Follow-up with cardiology. 5. Elevated troponin. Likely chronic.. Denies any chest pain. Stable at present. Continue on beta lyssa. 6. Essential hypertension. Continue on antihypertensives and adjust as needed 7. Arthritis. Analgesics as needed. Off NSAIDs because of GI bleed 8. A. fib with RVR. Still with fast artery. Amiodarone oral medication.. Continue on diltiazem per cardiology. Still with reported tachycardia this morning. Follow-up with cardiology. Anticoagulation per cardiology Disposition and plan: Continue on diltiazem and amiodarone for rate control. Anticoagulation per cardiology. Possible outpatient colonoscopy. Discharge when cleared by consultants Discussed but of care with Dr. Ramos Problems: Subjective 24 Hr Interval Summary Free Text/Dictation Denies any chest pain. With reported tachycardia in the 140s this morning. Follow-up Exam/Review of Systems Vital Signs Vitals Vital Signs Date Time Temp Pulse Resp B/P Pulse Ox O2 Delivery O2 Flow Rate FiO2 11/25/16 15:52 98.5 66 16 117/65 99 11/25/16 04:00 Room Air Intake and Output 11/24/16 11/24/16 11/25/16 15:00 23:00 07:00 Intake Total 940 ml 960 ml Balance 940 ml 960 ml Exam General: Comfortable at present. No apparent distress Eyes: pupils equal round, Anicteric sclera Neck: Supple nontender, no JVD Cardiac: Noted with heart murmur. Still noted with irregular rhythm Pulmonary: Oh obvious wheezing or rhonchi GI: Soft nontender nondistended Extremities: No edema bilateral lower extremities Skin: Clean dry and intact Neurologic: Alert to person place and time and situation Results Result Diagram: 11/25/16 0540 11/25/16 0540 Results 24 hrs Laboratory Tests Test 11/25/16 05:40 Anion Gap 16 Basophils # 0.0 Basophils % 0.3 Blood Urea Nitrogen 14 Calcium Level 8.8 Carbon Dioxide Level 20 L Chloride Level 109 Creatinine 1.58 H Eosinophils # 0.3 Eosinophils % 2.5 Glucose Level 109 Hematocrit 33.0 L Hemoglobin 11.0 L Lymphocytes # 1.4 Lymphocytes % 13.2 L Mean Corpuscular Hemoglobin 30.7 Mean Corpuscular Hemoglobin Concent 33.3 Mean Corpuscular Volume 92.2 Mean Platelet Volume 10.8 H Monocytes # 1.1 H Monocytes % 10.7 Neutrophils # 7.7 H Neutrophils % 72.9 Nucleated Red Blood Cells # 0.0 Nucleated Red Blood Cells % 0.0 Platelet Count 254 Potassium Level 4.0 Red Blood Count 3.58 L Red Cell Distribution Width 13.8 Sodium Level 141 White Blood Count 10.6 Medications Medications Current Medications Sodium Chloride (NS) 1,000 ml @ 50 mls/hr Q20H IV Last administered on 12:09; Admin Dose 50 MLS/HR; Start 11/19/16 at 23:11 Ondansetron HCl (Zofran Inj) 4 mg Q6H PRN IV NAUSEA AND/OR VOMITING; Start at 23:30 Acetaminophen (Tylenol Supp) [address] PAIN LEVEL 1-3 OR FEVER; Start 11/19/16 at 23:30 Morphine Sulfate 2 mg 2 mg Q4H PRN IV SEVERE PAIN LEVEL 7-10; Start 11/19/16 at 23:30 Pantoprazole/ Sodium Chloride (Protonix Iv/NS) 100 ml @ 10 mls/hr Q10H IV Last administered on 11/25/16 12:08; Admin Dose 10 MLS/HR; Start 11/19/16 at 23: 30 Hydralazine HCl (Apresoline) 10 mg Q6H PRN IV SBP> 160 Last administered on 14:22; Admin Dose 10 MG; Start 11/20/16 at 11:30 Metoprolol Succinate (Toprol Xl) 25 mg BID PO Last administered on 11/25/16 08: 12; Admin Dose 25 MG; Start 11/24/16 at 21:00 Diltiazem HCl (Cardizem Iv) 5 mg Q4 PRN IV HR>110; Start 11/24/16 at 14:30 Amiodarone HCl (Cordarone) 200 mg BID PO Last administered on 11/25/16 08:12; Admin Dose 200 MG; Start 11/24/16 at 21:00 ALESIA CHAMBERLAIN Nov 25, 2016 16:49
--- NOTE | 2016-11-25 19:58 | CONS ---
Date/Time of Note Date/Time of Note DATE: 11/25/16 TIME: 19:54 Assessment/Plan Assessment/Plan Chief Complaint/Hosp Course IMp: 1.AF with RVR on amio 2.Positive tropponin-now trended negative in setting of renal failure/rapid AF 3.MS-moderate to severe by echo/gradient 4.GIB 5.HTN 6.REnal failure Recc: -Tele -serial ecg;s -Continue PO amiodarone -INcrease Toprol to 50 BID and if HR remains marginal would add low dose dilt CD -s/p Partial IVP digoxin load with sig improvement in HR -PRN IVP dilt -STart asa and follow hgb closely -Not on systemic anti-coag secondary to anemia Problems: Consultation Date/Type/Reason Admit Date/Time Nov 20, 2016 at 07:25 Initial Consult Date 11/22/16 Type of Consultation: Cardiology Reason for Consultation AF Referring Provider: KRISTEN BOWLING MD Exam/Review of Systems Vital Signs Vitals Vital Signs Date Time Temp Pulse Resp B/P Pulse Ox O2 Delivery O2 Flow Rate FiO2 11/25/16 17:03 93 11/25/16 15:52 98.5 16 117/65 99 11/25/16 04:00 Room Air Intake and Output 11/24/16 11/24/16 11/25/16 15:00 23:00 07:00 Intake Total 940 ml 960 ml Balance 940 ml 960 ml Exam Review of Systems: CONSTITUTIONAL: No fevers, chills. PULMONARY: No sob CARDIOVASCULAR: No chest pain/palpitations GASTROINTESTINAL: No nausea/vomiting. GENITOURINARY: No hematuria/dysuria. MUSCULOSKELETAL: No myagias/arthalgias. PSYCHIATRIC: The patient denies depression. NEUROLOGIC: No weakness Constitutional: alert Psych: no complaints Head: normocephalic ENMT: mucosa pink and moist Neck: jvd (8 cm water), supple Cardiovascular: irregular rhythm Gastrointestinal: non-tender, soft Musculoskeletal: muscle tone (normal) Extremities: edema (none) Neurological: other (No focal deficits) Results Result Diagram: 11/25/16 0540 11/25/16 0540 Results 24 hrs Laboratory Tests Test 11/25/16 05:40 Anion Gap 16 Basophils # 0.0 Basophils % 0.3 Blood Urea Nitrogen 14 Calcium Level 8.8 Carbon Dioxide Level 20 L Chloride Level 109 Creatinine 1.58 H Eosinophils # 0.3 Eosinophils % 2.5 Glucose Level 109 Hematocrit 33.0 L Hemoglobin 11.0 L Lymphocytes # 1.4 Lymphocytes % 13.2 L Mean Corpuscular Hemoglobin 30.7 Mean Corpuscular Hemoglobin Concent 33.3 Mean Corpuscular Volume 92.2 Mean Platelet Volume 10.8 H Monocytes # 1.1 H Monocytes % 10.7 Neutrophils # 7.7 H Neutrophils % 72.9 Nucleated Red Blood Cells # 0.0 Nucleated Red Blood Cells % 0.0 Platelet Count 254 Potassium Level 4.0 Red Blood Count 3.58 L Red Cell Distribution Width 13.8 Sodium Level 141 White Blood Count 10.6 Medications Medications Current Medications Sodium Chloride (NS) 1,000 ml @ 50 mls/hr Q20H IV Last administered on 12:09; Admin Dose 50 MLS/HR; Start 11/19/16 at 23:11 Ondansetron HCl (Zofran Inj) 4 mg Q6H PRN IV NAUSEA AND/OR VOMITING; Start at 23:30 Acetaminophen (Tylenol Supp) 650 mg Q6H PRN [place] PAIN LEVEL 1-3 OR FEVER; Start 11/19/16 at 23:30 Morphine Sulfate 2 mg 2 mg Q4H PRN IV SEVERE PAIN LEVEL 7-10; Start 11/19/16 at 23:30 Pantoprazole/ Sodium Chloride (Protonix Iv/NS) 100 ml @ 10 mls/hr Q10H IV Last administered on 11/25/16 12:08; Admin Dose 10 MLS/HR; Start 11/19/16 at 23: 30 Hydralazine HCl (Apresoline) 10 mg Q6H PRN IV SBP> 160 Last administered on 14:22; Admin Dose 10 MG; Start 11/20/16 at 11:30 Metoprolol Succinate (Toprol Xl) 25 mg BID PO Last administered on 11/25/16 08: 12; Admin Dose 25 MG; Start 11/24/16 at 21:00 Diltiazem HCl (Cardizem Iv) 5 mg Q4 PRN IV HR>110; Start 11/24/16 at 14:30 Amiodarone HCl (Cordarone) 200 mg BID PO Last administered on 11/25/16 08:12; Admin Dose 200 MG; Start 11/24/16 at 21:00 JOSE MUNIZ Nov 25, 2016 19:58
[2016-11-25] MEDS: METOPROLOL (XL) 50 MG TAB PO SCH (20:47)
[2016-11-26] VITALS (12 sets, daily range): BP systolic 102–149; BP diastolic 58–68; PULSE 64–96; RESP 16–20
[2016-11-26] MEDS: PANTOPRAZOLE IV 80 MG in SOD CHLORIDE 0.9% 100 ML IV SCH ×2 (05:53→15:41)
[2016-11-26 07:01] LABS: ADD SCAN DIFF NO
[2016-11-26 07:10] LABS: BASOPHILS % 0.4 % (0.0-2.0); EOSINOPHILS # 0.4 10^3/ul (0.0-0.5); EOSINOPHILS % 4.7 % (0.0-7.0); HEMATOCRIT 30.1 % (37.0-47.0); HEMOGLOBIN 9.8 g/dl (12.0-16.0); LYMPHOCYTES # 1.6 10^3/ul (0.8-2.9); LYMPHOCYTES % 17.3 % (15.0-51.0); MEAN CORPUSCULAR HGB CONC 32.6 g/dl (32.0-37.0); MEAN CORPUSCULAR VOLUME 95.3 fl (82.0-101.0); MEAN PLATELET VOLUME 10.9 fl (7.4-10.4); MONOCYTES % 11.1 % (0.0-11.0); NEUTROPHIL # 6.1 10^3/ul (1.6-7.5); NEUTROPHILS % 66.3 % (39.0-77.0); PLATELET COUNT 244 10^3/UL (140-415); RED BLOOD COUNT 3.16 10^6/ul (4.20-5.40); WHITE BLOOD COUNT 9.2 10^3/ul (4.8-10.8)
[2016-11-26 07:26] LABS: POTASSIUM 3.9 mmol/L (3.5-5.1)
[2016-11-26 07:28] LABS: CREATININE 1.68 mg/dl (0.44-1.00)
[2016-11-26 07:29] LABS: CALCIUM 8.6 mg/dl (8.4-10.2)
[2016-11-26] MEDS: AMIODARONE 200 MG TAB PO SCH ×2 (08:30→20:38)
[2016-11-26] MEDS: METOPROLOL (XL) 50 MG TAB PO SCH ×2 (08:30→20:39)
--- NOTE | 2016-11-26 13:48 | CONS ---
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 -outpatient f/u 2 weeks -s/p Partial IVP digoxin load with sig improvement in HR -PRN IVP dilt -Not on systemic anti-coag secondary to anemia Problems: Consultation Date/Type/Reason Admit Date/Time Nov 20, 2016 at 07:25 Initial Consult Date 11/22/16 Type of Consultation: Cardiology Reason for Consultation AF Referring Provider: KRISTEN BOWLING MD Exam/Review of Systems Vital Signs Vitals Vital Signs Date Time Temp Pulse Resp B/P Pulse Ox O2 Delivery O2 Flow Rate FiO2 11/26/16 12:18 64 11/26/16 11:49 97.7 16 102/58 99 11/25/16 04:00 Room Air Intake and Output 11/25/16 11/25/16 11/26/16 15:00 23:00 07:00 Intake Total 1080 ml 690 ml Balance 1080 ml 690 ml Exam Review of Systems: CONSTITUTIONAL: No fevers, chills. PULMONARY: No sob CARDIOVASCULAR: No chest pain/palpitations GASTROINTESTINAL: No nausea/vomiting. GENITOURINARY: No hematuria/dysuria. MUSCULOSKELETAL: No myagias/arthalgias. PSYCHIATRIC: The patient denies depression. NEUROLOGIC: No weakness Constitutional: alert, oriented Psych: no complaints Head: normocephalic ENMT: mucosa pink and moist Neck: jvd, supple Respiratory: diminished breath sounds (at bases/B) Cardiovascular: regular rate and rhythm Gastrointestinal: non-tender Musculoskeletal: muscle tone (normal) Extremities: edema (none) Neurological: other (No focal deficits) Results Result Diagram: 11/26/16 0625 11/26/16 0625 Results 24 hrs Laboratory Tests Test 11/26/16 06:25 Anion Gap 15 Basophils # 0.0 Basophils % 0.4 Blood Urea Nitrogen 16 Calcium Level 8.6 Carbon Dioxide Level 22 Chloride Level 110 Creatinine 1.68 H Eosinophils # 0.4 Eosinophils % 4.7 Glucose Level 102 Hematocrit 30.1 L Hemoglobin 9.8 L Lymphocytes # 1.6 Lymphocytes % 17.3 Mean Corpuscular Hemoglobin 31.0 Mean Corpuscular Hemoglobin Concent 32.6 Mean Corpuscular Volume 95.3 Mean Platelet Volume 10.9 H Monocytes # 1.0 H Monocytes % 11.1 H Neutrophils # 6.1 Neutrophils % 66.3 Nucleated Red Blood Cells # 0.0 Nucleated Red Blood Cells % 0.0 Platelet Count 244 Potassium Level 3.9 Red Blood Count 3.16 L Red Cell Distribution Width 14.0 Sodium Level 143 White Blood Count 9.2 Medications Medications Current Medications Sodium Chloride (NS) 1,000 ml @ 50 mls/hr Q20H IV Last administered on 12:09; Admin Dose 50 MLS/HR; Start 11/19/16 at 23:11 Ondansetron HCl (Zofran Inj) 4 mg Q6H PRN IV NAUSEA AND/OR VOMITING; Start at 23:30 Acetaminophen (Tylenol Supp) 650 mg Q6H PRN [place] PAIN LEVEL 1-3 OR FEVER; Start 11/19/16 at 23:30 Morphine Sulfate 2 mg 2 mg Q4H PRN IV SEVERE PAIN LEVEL 7-10; Start 11/19/16 at 23:30 Pantoprazole/ Sodium Chloride (Protonix Iv/NS) 100 ml @ 10 mls/hr Q10H IV Last administered on 11/26/16 05:53; Admin Dose 10 MLS/HR; Start 11/19/16 at 23: 30 Hydralazine HCl (Apresoline) 10 mg Q6H PRN IV SBP> 160 Last administered on 14:22; Admin Dose 10 MG; Start 11/20/16 at 11:30 Diltiazem HCl (Cardizem Iv) 5 mg Q4 PRN IV HR>110; Start 11/24/16 at 14:30 Amiodarone HCl (Cordarone) 200 mg BID PO Last administered on 11/26/16 08:30; Admin Dose 200 MG; Start 11/24/16 at 21:00 Metoprolol Succinate (Toprol Xl) 50 mg BID PO Last administered on 11/26/16t 08: 30; Admin Dose 50 MG; Start 11/25/16 at 21:00 JOSE MUNIZ Nov 26, 2016 13:48
[2016-11-26] MEDS ORDERED: ASPI-664 PO (14:14)
[2016-11-26] MEDS ORDERED: METO50TA16 PO (14:14)
[2016-11-26] MEDS ORDERED: PANT40TA3 PO (14:14)
[2016-11-26] MEDS ORDERED: AMIO200T2 PO (14:14)
--- NOTE | 2016-11-26 14:21 | PDOCDIS ---
Discharge Instructions DIAGNOSIS Discharge Diagnosis: 1. Anemia with GI bleed 2. afib with RVR 3. elevated troponin CONDITION Patient Condition: Stable HOME CARE INSTRUCTIONS: Diet Instructions: Low Fat /Cholesterol FOLLOW UP/APPOINTMENTS Appointments 1. Follow up with Dr. Fili Boyce within one week 2. Follow up with Dr. Doris Boyd in 1 week OTHER ORDERS: Other Orders: 1. Call 911 if you have worsening chest pain or shortness of breath 2. Take your medications as prescribed ALESIA CHAMBERLAIN Nov 26, 2016 14:21
[2016-11-26 15:35] LABS: IRON 14 ug/dl (35-150)
[2016-11-26] MEDS: SOD CHLORIDE 0.9% 1,000 ML IV SCH (15:41)
[2016-11-26 15:44] LABS: TOTAL IRON BINDING CAPACITY 304 ug/dl (241-421)
--- NOTE | 2016-11-26 23:29 | PN ---
Date/Time of Note Date/Time of Note DATE: 11/26/16 TIME: 1100 Assessment/Plan VTE Prophylaxis VTE Prophylaxis Intervention: SCD's Lines/Catheters IV C[facility]ter Type (from [facility] Peripheral IV Urinary Cath still in place: No Assessment/Plan Chief Complaint/Hosp Course 1. Abdominal pain with underlying GI bleed. Continue on PPI. Of note patient is status post 2 units PRBC with good improvement. At this time patient family refusing colonoscopy. Possible plan for outpatient colonoscopy. H&H remained stable at present. Will provide with PRBC as needed 2. Normocytic normochromic anemia secondary to acute blood loss. Patient improved status post PRBC transfusion. Improved at this time. Continue on PPI. We will continue to monitor H&H. Follow-up on iron panel 3. Acute on chronic renal failure. Monitor renal panel. Avoid nephrotoxic medications. Appears stable at this time. May be patient's baseline 4. Mitral valve stenosis with underlying cardiomyopathy. Patient did report that she was to have surgical intervention for her mitral valve stenosis roughly one year ago in [place]. At that time she did refuse further surgical intervention. Continue optimization with cardiovascular medications.. Patient advised to follow-up with outpatient cardiology for this issue 5. Elevated troponin. Likely chronic.. Denies any chest pain. Stable at present. Continue on beta lyssa. 6. Essential hypertension. Continue on antihypertensives and adjust as needed 7. Arthritis. Analgesics as needed. Off NSAIDs because of GI bleed 8. A. fib with RVR. Still with fast artery. Amiodarone oral medication.. Continue on diltiazem per cardiology. Still with reported tachycardia this morning. Follow-up with cardiology. Anticoagulation per cardiology Disposition and plan: Patient still with some noted minor drop in anemia. Monitor trend. Follow-up iron panel Discussed but of care with Dr. Ramos Problems: Subjective 24 Hr Interval Summary Free Text/Dictation Comfortable at present. No apparent distress Exam/Review of Systems Vital Signs Vitals Vital Signs Date Time Temp Pulse Resp B/P Pulse Ox O2 Delivery O2 Flow Rate FiO2 11/26/16 20:05 96 11/26/16 19:58 98.9 20 138/68 100 Room Air Intake and Output 11/25/16 11/25/16 11/26/16 15:00 23:00 07:00 Intake Total 1080 ml 690 ml Balance 1080 ml 690 ml Exam General: Comfortable at present. Denies any pain Eyes: Pupils equal round reactive to light Neck: Supple nontender, no JVD Cardiac: Irregular rhythm. Rate controlled Pulmonary: No wheezing or rhonchi GI: Soft nontender nondistended Extremities: No obvious edema bilateral lower extremities Skin: Clean dry and intact Neurologic: Alert oriented 3 Results Result Diagram: 11/26/16 0625 11/26/16 0625 Results 24 hrs Laboratory Tests Test 11/26/16 06:25 11/26/16 14:49 Anion Gap 15 Basophils # 0.0 Basophils % 0.4 Blood Urea Nitrogen 16 Calcium Level 8.6 Carbon Dioxide Level 22 Chloride Level 110 Creatinine 1.68 H Eosinophils # 0.4 Eosinophils % 4.7 Glucose Level 102 Hematocrit 30.1 L Hemoglobin 9.8 L Lymphocytes # 1.6 Lymphocytes % 17.3 Mean Corpuscular Hemoglobin 31.0 Mean Corpuscular Hemoglobin Concent 32.6 Mean Corpuscular Volume 95.3 Mean Platelet Volume 10.9 H Monocytes # 1.0 H Monocytes % 11.1 H Neutrophils # 6.1 Neutrophils % 66.3 Nucleated Red Blood Cells # 0.0 Nucleated Red Blood Cells % 0.0 Platelet Count 244 Potassium Level 3.9 Red Blood Count 3.16 L Red Cell Distribution Width 14.0 Sodium Level 143 White Blood Count 9.2 Iron Level 14 L Percent Iron Saturation 5 L Total Iron Binding Capacity 304 Medications Medications Current Medications Sodium Chloride (NS) 1,000 ml @ 50 mls/hr Q20H IV Last administered on 15:41; Admin Dose 50 MLS/HR; Start 11/19/16 at 23:11 Ondansetron HCl (Zofran Inj) 4 mg Q6H PRN IV NAUSEA AND/OR VOMITING; Start at 23:30 Acetaminophen (Tylenol Supp) 650 mg Q6H PRN [place] PAIN LEVEL 1-3 OR FEVER; Start 11/19/16 at 23:30 Morphine Sulfate 2 mg 2 mg Q4H PRN IV SEVERE PAIN LEVEL 7-10; Start 11/19/16 at 23:30 Pantoprazole/ Sodium Chloride (Protonix Iv/NS) 100 ml @ 10 mls/hr Q10H IV Last administered on 11/26/16 15:41; Admin Dose 10 MLS/HR; Start 11/19/16 at 23: 30 Hydralazine HCl (Apresoline) 10 mg Q6H PRN IV SBP> 160 Last administered on 14:22; Admin Dose 10 MG; Start 11/20/16 at 11:30 Diltiazem HCl (Cardizem Iv) 5 mg Q4 PRN IV HR>110; Start 11/24/16 at 14:30 Amiodarone HCl (Cordarone) 200 mg BID PO Last administered on 11/26/16 20:38; Admin Dose 200 MG; Start 11/24/16 at 21:00 Metoprolol Succinate (Toprol Xl) 50 mg BID PO Last administered on 11/26/16 20: 39; Admin Dose 50 MG; Start 11/25/16 at 21:00 Aspirin (Halfprin) 81 mg DAILY PO ; Start 11/27/16 at 09:00 ALESIA CHAMBERLAIN Nov 26, 2016 23:23
[2016-11-26] MEDS ORDERED: SOD FERRIC GLUC COMPLX 125 MG in SOD CHLORIDE 0.9% 100 ML IVPB SCH (23:30)
[2016-11-27] VITALS (7 sets, daily range): BP systolic 94–143; BP diastolic 50–64; PULSE 59–107; RESP 18–20
[2016-11-27] MEDS ORDERED: ACETAMINOPHEN 325 MG TAB PO PRN (02:00)
[2016-11-27] MEDS: PANTOPRAZOLE IV 80 MG in SOD CHLORIDE 0.9% 100 ML IV SCH ×2 (05:10→11:30)
[2016-11-27 07:49] LABS: ADD SCAN DIFF NO
[2016-11-27 07:59] LABS: BASOPHILS % 0.3 % (0.0-2.0); EOSINOPHILS # 0.5 10^3/ul (0.0-0.5); EOSINOPHILS % 4.8 % (0.0-7.0); HEMATOCRIT 27.2 % (37.0-47.0); HEMOGLOBIN 9.2 g/dl (12.0-16.0); LYMPHOCYTES # 1.7 10^3/ul (0.8-2.9); LYMPHOCYTES % 17.4 % (15.0-51.0); MEAN CORPUSCULAR HEMOGLOBIN 32.2 pg (29.0-33.0); MEAN CORPUSCULAR HGB CONC 33.8 g/dl (32.0-37.0); MEAN CORPUSCULAR VOLUME 95.1 fl (82.0-101.0); MEAN PLATELET VOLUME 11.5 fl (7.4-10.4); MONOCYTE # 0.8 10^3/ul (0.3-0.9); MONOCYTES % 8.1 % (0.0-11.0); NEUTROPHIL # 6.8 10^3/ul (1.6-7.5); NEUTROPHILS % 69.1 % (39.0-77.0); PLATELET COUNT 249 10^3/UL (140-415); RED BLOOD COUNT 2.86 10^6/ul (4.20-5.40); RED CELL DISTRIBUTION WIDTH 14.3 % (11.5-14.5); WHITE BLOOD COUNT 9.8 10^3/ul (4.8-10.8)
[2016-11-27 08:25] LABS: CALCIUM 8.7 mg/dl (8.4-10.2); CREATININE 1.7 mg/dl (0.44-1.00); POTASSIUM 3.4 mmol/L (3.5-5.1)
[2016-11-27] MEDS ORDERED: ASPIRIN (EC) 81 MG TAB PO SCH (09:00)
[2016-11-27] MEDS ORDERED: FER325 PO (09:01)
[2016-11-27] MEDS: METOPROLOL (XL) 50 MG TAB PO SCH (09:26)
[2016-11-27] MEDS: AMIODARONE 200 MG TAB PO SCH (09:26)
--- NOTE | 2016-11-27 10:48 | DS ---
Date/Time of Note Date/Time of Note DATE: 11/27/16 TIME: 10:41 Discharge Summary Admission/Discharge Info Admit Date/Time Nov 20, 2016 at 07:25 Discharge Date/Time Final Diagnosis 1. Abdominal pain with underlying GI bleed. 2. Normocytic normochromic anemia secondary to acute blood loss. 3. Acute on chronic renal failure. Monitor renal panel. 4. Mitral valve stenosis with underlying cardiomyopathy. 5. Elevated troponin. 6. Essential hypertension. 7. Arthritis. 8. A. fib with RVR. 9. Iron deficiency anemia Patient Condition: Stable Consults 1. Dr. Doris Boyd 2. Dr. Fili Boyce [facility] Course This is a 71-year-old female with history of CHF with diastolic dysfunction, mitral valve stenosis, cardiomyopathy, gout, arthritis, CKD, who came to [facility] due to reports of abdominal pole pain as well as reported bright red blood per rectum. She reports that she had recently completed [employer] from a trip. Afterwards she started to have abdominal pain when she arrived to the . She reports pain is 8 out of 10 in intensity gnawing- like in nature. She did come to [facility] due to the aforementioned issues. Patient did receive 2 packed red blood cells of blood with good response. Her anemia did improve. She was also consulted by wire straightener. She was noted with acute kidney injury she was noted with chronic kidney disease. This did remain stable and we did continue to avoid nephrotoxic medications as possible. She was noted with elevated troponin. She also had run of atrial fibrillation with RVR. She was seen by telephone solicitor supervisor for this issue and after review this is likely chronic. This was suspect secondary to her atrial fibrillation and also in the setting of renal failure.. Of note she did have history of mitral valve stenosis and was advised for valve repair one year ago at [facility] however at that time patient did refuse intervention. Patient was again advised for possible reconsideration of mitral valve repair. Patient's anemia did improve and we did find her to be with severe iron deficiency. For this we did provide her with iron supplement. Her anemia did stabilize and although she was offered option of colonoscopy and consequences of not having colonoscopy, patient still refused to report that she may consider for outpatient. During the course of stay she did improve. She did have stable anemia on the day of her discharge and her A. fib was also stabilized with her antiarrhythmic medication. She was advised for follow-up with telephone solicitor supervisor as well as wire straightener as outpatient. There was question whether we should start patient on anticoagulation considering her atrial fibrillation however after discussion with telephone solicitor supervisor due to her risk for anemia and bleed we provided patient with antiplatelet with report to her for continuous follow-up. The plan of care was discussed with the patient and patient did verbalize her understanding. On the day of discharge patient was in stable condition Discussed plan of care with Dr. Ramos Discharge processed image 40 minutes Disposition: Home Home Meds Active Scripts Ferrous Sulfate* (Ferrous Sulfate*) 325 Mg Tabec, 325 MG PO TID for 30 Days, TAB Prov:ALESIA CHAMBERLAIN 11/27/16 Pantoprazole* (Protonix*) 40 Mg Tablet., 40 MG PO DAILY for 30 Days, TAB Prov:REGIDORALESIA 11/26/16 Metoprolol Succinate* (Toprol XL*) 50 Mg Tab.er.24h, 50 MG PO BID for 30 Days Prov:ALESIA CHAMBERLAIN 11/26/16 Aspirin* (Aspirin* EC) 81 Mg Tablet.dr, 81 MG PO DAILY for 30 Days Prov:ALESIA CHAMBERLAIN 11/26/16 Amiodarone Hcl* (Amiodarone Hcl*) 200 Mg Tablet, 200 MG PO BID for 30 Days, TAB Prov:ALESIA CHAMBERLAIN 11/26/16 Reported Medications [Nephro-Vaibhav] No Conflict Check, 1 TAB PO DAILY 11/19/16 Furosemide* (Furosemide*) 20 Mg Tablet, 20 MG PO Q48H, #30 TAB 11/19/16 Oxford-3/Dha/Epa/Fish Oil (Fish Oil 500 mg Softgel) 1 Each Capsule, 1 EACH PO DAILY, CAP 11/19/16 Aspirin* (Aspirin* EC) 81 Mg Tablet.dr, 81 MG PO DAILY, TAB 11/19/16 Metoprolol Succinate* (Toprol XL*) 25 Mg Tab.sr.24h, 25 MG PO DAILY, #30 TAB 11/19/16 Follow-up Plan CONDITION Patient Condition: Stable HOME CARE INSTRUCTIONS: Diet Instructions: Low Fat /Cholesterol FOLLOW UP/APPOINTMENTS Appointments 1. Follow up with Dr. Fili Boyce within one week 2. Follow up with Dr. Doris Boyd in 1 week OTHER ORDERS: Other Orders: 1. Call 911 if you have worsening chest pain or shortness of breath 2. Take your medications as prescribed Pending Labs Laboratory Tests Test 11/26/16 14:49 11/27/16 06:56 Iron Level 14ug/dl (35-150) Percent Iron Saturation 5% SAT (22-52) Total Iron Binding Capacity 304ug/dl (241-421) Anion Gap 13 (8-16) Basophils # 0.010^3/ul (0.0-0.1) Basophils % 0.3% (0.0-2.0) Blood Urea Nitrogen 19mg/dl (7-20) Calcium Level 8.7mg/dl (8.4-10.2) Carbon Dioxide Level 21mmol/L (21-31) Chloride Level 112mmol/L (97-110) Creatinine 1.70mg/dl (0.44-1.00) Eosinophils # 0.510^3/ul (0.0-0.5) Eosinophils % 4.8% (0.0-7.0) Glucose Level 92mg/dl (70-220) Hematocrit 27.2% (37.0-47.0) Hemoglobin 9.2g/dl (12.0-16.0) Lymphocytes # 1.710^3/ul (0.8-2.9) Lymphocytes % 17.4% (15.0-51.0) Mean Corpuscular Hemoglobin 32.2pg (29.0-33.0) Mean Corpuscular Hemoglobin Concent 33.8g/dl (32.0-37.0) Mean Corpuscular Volume 95.1fl (82.0-101.0) Mean Platelet Volume 11.5fl (7.4-10.4) Monocytes # 0.810^3/ul (0.3-0.9) Monocytes % 8.1% (0.0-11.0) Neutrophils # 6.810^3/ul (1.6-7.5) Neutrophils % 69.1% (39.0-77.0) Nucleated Red Blood Cells # 0.010^3/ul (0.0-0.0) Nucleated Red Blood Cells % 0.0/100WBC (0.0-0.0) Platelet Count 88320^3/UL (140-415) Potassium Level 3.4mmol/L (3.5-5.1) Red Blood Count 2.8610^6/ul (4.20-5.40) Red Cell Distribution Width 14.3% (11.5-14.5) Sodium Level 143mmol/L (135-144) White Blood Count 9.810^3/ul (4.8-10.8) ALESIA CHAMBERLAIN Nov 27, 2016 10:48
[2016-11-27] MEDS: SOD CHLORIDE 0.9% 1,000 ML IV SCH (11:11)
--- NOTE | 2016-11-27 14:11 | CONS ---
Date/Time of Note Date/Time of Note DATE: 11/27/16 TIME: 14:08 Assessment/Plan Assessment/Plan Additional Assessment/Plan 1.AF with RVR- rate controlled 2. Mitral stenosis 3.GIB 4.HTN 5. Renal failure Recomendation Continue Toprol Continue Amiodarone Not on systemic anti-coag secondary to GI bleed and anemia Continue ASA though coumadin is indicated due to valvular heart disease Consultation Date/Type/Reason Admit Date/Time Nov 20, 2016 at 07:25 Psychological: no complaints Past Medical History Medical History: congestive heart failure, coronary artery disease Past Surgical History Past Surgical Hx: bowel resection Social History Alcohol Use: none Smoking Status: Never smoker Drug Use: none Exam/Review of Systems Vital Signs Vitals Vital Signs Date Time Temp Pulse Resp B/P Pulse Ox O2 Delivery O2 Flow Rate FiO2 11/27/16 12:12 59 11/27/16 11:57 97.5 18 94/50 99 11/27/16 00:21 Room Air Intake and Output 11/26/16 11/26/16 11/27/16 15:00 23:00 07:00 Intake Total 600 ml 2240 ml 680 ml Balance 600 ml 2240 ml 680 ml Exam Constitutional: alert, oriented Head: atraumatic, normocephalic Neck: non-tender, supple Respiratory: clear to auscultation Cardiovascular: irregular rhythm Gastrointestinal: nl liver, spleen, non-tender, soft Extremities: normal pulses Results Result Diagram: 11/27/16 0656 11/27/16 0656 Results 24 hrs Laboratory Tests Test 11/26/16 14:49 11/27/16 06:56 Iron Level 14 L Percent Iron Saturation 5 L Total Iron Binding Capacity 304 Anion Gap 13 Basophils # 0.0 Basophils % 0.3 Blood Urea Nitrogen 19 Calcium Level 8.7 Carbon Dioxide Level 21 Chloride Level 112 H Creatinine 1.70 H Eosinophils # 0.5 Eosinophils % 4.8 Glucose Level 92 Hematocrit 27.2 L Hemoglobin 9.2 L Lymphocytes # 1.7 Lymphocytes % 17.4 Mean Corpuscular Hemoglobin 32.2 Mean Corpuscular Hemoglobin Concent 33.8 Mean Corpuscular Volume 95.1 Mean Platelet Volume 11.5 H Monocytes # 0.8 Monocytes % 8.1 Neutrophils # 6.8 Neutrophils % 69.1 Nucleated Red Blood Cells # 0.0 Nucleated Red Blood Cells % 0.0 Platelet Count 249 Potassium Level 3.4 L Red Blood Count 2.86 L Red Cell Distribution Width 14.3 Sodium Level 143 White Blood Count 9.8 Medications Medications Current Medications Sodium Chloride (NS) 1,000 ml @ 50 mls/hr Q20H IV Last administered on 15:41; Admin Dose 50 MLS/HR; Start 11/19/16 at 23:11 Ondansetron HCl (Zofran Inj) 4 mg Q6H PRN IV NAUSEA AND/OR VOMITING; Start at 23:30 Morphine Sulfate 2 mg 2 mg Q4H PRN IV SEVERE PAIN LEVEL 7-10; Start 11/19/16 at 23:30 Pantoprazole/ Sodium Chloride (Protonix Iv/NS) 100 ml @ 10 mls/hr Q10H IV Last administered on 11/27/16 05:10; Admin Dose 10 MLS/HR; Start 11/19/16 at 23: 30 Hydralazine HCl (Apresoline) 10 mg Q6H PRN IV SBP> 160 Last administered on 14:22; Admin Dose 10 MG; Start 11/20/16 at 11:30 Diltiazem HCl (Cardizem Iv) 5 mg Q4 PRN IV HR>110; Start 11/24/16 at 14:30 Amiodarone HCl (Cordarone) 200 mg BID PO Last administered on 11/27/16 09:26; Admin Dose 200 MG; Start 11/24/16 at 21:00 Metoprolol Succinate (Toprol Xl) 50 mg BID PO Last administered on 11/27/16 09: 26; Admin Dose 50 MG; Start 11/25/16 at 21:00 Aspirin 81 mg 81 mg DAILY PO Last administered on 11/27/16 09:26; Admin Dose 81 MG; Start 11/27/16 at 09:00 Ferric Sodium Gluconate Complex/ Sodium Chloride (Ferrlecit/NS) 110 ml @ 110 mls/hr Q24H IVPB Last administered on 11/27/16 00:14; Admin Dose 110 MLS/HR; Start 11/26/16 at 23:30; Stop 12/01/16 at 00:29 Acetaminophen (Tylenol Tab) 650 mg Q6H PRN PO PAIN AND OR ELEVATED TEMP Last administered on 3/4/17at 01:54; Admin Dose 650 MG; Start 11/27/16 at 02:00 GUY OCHOA M.D. Nov 27, 2016 14:11
== END 2016-11-27 16:15 | disposition home or self-care (01) | DRG 377 ==
LOC: E/R 19:31 → UNDOADMOB 22:59 → MS2 22:59 → INTOOBSV 22:59 → MS2 23:00 → OBSVTOIN 11-20 07:25 → MS4 11-20 17:10
PROVIDERS: ADMIT Student in an Organized Health Care Education/Training Program; ATTEND Student in an Organized Health Care Education/Training Program
PROC: 30233N1 Transfusion of Nonautologous Red Blood Cells into Peripheral Vein, Percutaneous Approach (ICD-10-PCS; principal; 2016-11-20)
DX: K92.2 Gastrointestinal hemorrhage, unspecified (principal); N17.0 Acute kidney failure with tubular necrosis; I50.32 Chronic diastolic (congestive) heart failure; I13.0 Hypertensive heart and chronic kidney disease with heart failure and stage 1 through stage 4 chronic kidney disease, or unspecified chronic kidney disease; D62 Acute posthemorrhagic anemia; I42.9 Cardiomyopathy, unspecified; I05.0 Rheumatic mitral stenosis; N18.2 Chronic kidney disease, stage 2 (mild); M19.90 Unspecified osteoarthritis, unspecified site; M10.9 Gout, unspecified; I48.91 Unspecified atrial fibrillation; R10.9 Unspecified abdominal pain; R79.89 Other specified abnormal findings of blood chemistry
CPT/HCPCS: 36415; 36430; 71010; 74176; 80048; 80053; 80061; 81001; 81003; 82150; 82270; 82550; 82553; 83036; 83540; 83690; 83735; 84100; 84443; 84484; 84560; 85014; 85018; 85025; 86674; 86850; 86900; 86901; 86920; 87045; 87177; 87205; 87338; 87496; 90686; 93005; 93306; 96374; 96375; J1940; C9113; G0378; J0282; J0360; J2270; J2405; J2916; J7030; P9016